=== PATIENT | female | born 1985 | race Caucasian/White ===

== ENCOUNTER 2016-04-14 16:02 | Emergency (ER) | payer MEDICAID ==
[~2016-04-14] VITALS: Ht 172.7 cm; Wt 60.0 kg
[~2016-04-14 16:02] MED LIST: BACT800T5 PO; CLIN1CAP6 PO
[2016-04-14 16:04] VITALS: BP 122/63; PULSE 80; RESP 12; TEMP 98.4; O2SAT 100
[2016-04-15] MEDS ORDERED: DOXY100C PO (03:56)
== END 2016-04-14 18:15 | disposition left against medical advice (07) ==
LOC: NETRI 18:05
DX: R68.89 Other general symptoms and signs (principal)
CPT/HCPCS: 99281

== ENCOUNTER 2016-04-15 01:00 | Emergency (ER) | payer MEDICAID ==
[~2016-04-15] VITALS: Ht 172.7 cm; Wt 60.0 kg
[2016-04-15 01:04] VITALS: BP 118/73; PULSE 86; RESP 16; TEMP 98.3; O2SAT 99
[2016-04-15 01:10] VITALS: BP 121/70; PULSE 83; RESP 18; O2SAT 99
[2016-04-15] MEDS ORDERED: SODIUM CHLOR 0.9% 1000 ML INJ 1,000 ML IV ONE (01:21)
[2016-04-15 01:54] LABS: BLOOD, URINE NEG (NEG); COMMENT (UR) CULT NOT INDICATED; CULTURE IF INDICATED CULT NOT INDICATED; GLUCOSE,URINE NEG (NEG); KETONE, URINE NEG (NEG); MUCUS URINE FEW /lpf (OCC); NITRITE,URINE NEG (NEG); SQUAMOUS EPITHELIAL CELL URINE 3 /hpf (0-5); TRANSITIONAL EPI CELLS, URINE <1 /hpf; URINE COLOR YELLOW (YELLW/STRAW)
--- NOTE | 2016-04-15 02:34 | PD ---
HPI Chief Complaint: Abdominal Pain Time Seen by Provider: 01:19 Travel History International Travel<30 days: No Contact w/Intl Traveler<30days: No Traveled to known affect area: No History of Present Illness HPI The patient is a 30 year old female who presents to the [facility] emergency department with a history of lower abdominal pain the left lower quadrant of the abdomen that she reports is an aching sensation that began 2-1/ 2 weeks ago. She reports that the pain became more of a pressure sensation and a heaviness in her vagina approximately 3 days ago. She reports that she didn' t internal examination and fell something abnormal in her vagina, therefore she decided to come to the emergency department this evening. She reports that she has not had a menstrual cycle for the last 8 months. She denies being sexually active. She reports that she is a with 1 previously. She reports that she has had some nausea. She denies having any vaginal discharge. The patient denies any recent fevers, cough, congestion, neck pain, chest pain , shortness of breath, vomiting, diarrhea, urinary symptoms, or neurologic symptoms. [facility] Past Medical History Narrative Medical The patient's past medical history is reportedly significant for chronic low back pain. Medical History: Denies Significant Hx Tetanus Vaccination: < 5 Years Influenza Vaccination: No ?: Not LMP: 8 MONTHS AGO : 2 Para: 1 Miscarriage: 0 : 1 Past Surgical History Narrative Surgical The patient denies any past surgical history. Surgical History: No Previous Surgery Social History Alcohol Use: No Tobacco Use: Yes (/2 PPD) Substance Use: Yes (OPIATES) Allergies-Medications (Allergen,Severity, Reaction): Coded Allergies: Tramadol (Verified Allergy, Severe, TONGUE SWELLED UP, 04/15/16) Reported Meds & Prescriptions Reported Meds & Active Scripts Active Doxycycline Hyclate 100 Mg Cap 100 Mg PO BID Review of Systems Except as stated in HPI: all other systems reviewed are Neg General / Constitutional: No: Fever Eyes: No: Visual changes HENT: No: Headaches Cardiovascular: No: Chest Pain or Discomfort Respiratory: No: Shortness of Breath Gastrointestinal: Positive: Nausea, Abdominal Pain, No: Vomiting, Diarrhea Genitourinary: Positive: Pelvic Pain, No: Dysuria, Discharge, Vaginal Bleeding Musculoskeletal: No: Pain Skin: No Rash Neurologic: No: Weakness Psychiatric: No: Depression Endocrine: No: Polydipsia Hematologic/Lymphatic: No: Easy Bruising Physical Exam Narrative General: The patient is a well-developed well-nourished female in no acute distress. Head and Neck exam: Head is normocephalic atraumatic. Eyes: Pupils are equal round and reactive to light. Nose: Midline septum with pink mucous membranes Mouth: Dentition unremarkable. Moist mucus membranes. Posterior oropharynx is not erythematous. No tonsillar hypertrophy. Uvula midline. Airway patent. Neck: No palpable lymphadenopathy. No nuchal rigidity. No thyromegaly. Cardiovascular: Regular rate and rhythm without murmurs, gallops, or rubs. Lungs: Clear to auscultation bilaterally. No wheezes, rhonchi, or rales. Abdomen: Soft, with tenderness on palpation of the suprapubic area, no other tenderness on palpation of the other 4 quadrants of the abdomen. No tenderness on palpation of McBurney's point. Negative Alejandra sign. Normal bowel sounds are audible. Extremities: No clubbing, cyanosis, or edema. 2+ pulses in all 4 extremities. No calf tenderness on palpation. Back: No spinous process tenderness to palpation. No costovertebral angle tenderness to palpation. Neurologic Exam: Grossly nonfocal. Skin Exam: No rash noted. Intact skin that is warm and dry. Gynecologic exam: The patient was placed in the dorsal lithotomy position. Her external genitalia were examined. She had no evidence of rash or lesions. The speculum was placed into her vagina and the cervix was identified. She had a yellow scant amount of discharge with friable appearing cervix. No foreign bodies. No rectocele or cystocele identified. No uterine prolapse. On Bimanual exam: she has no cervical motion tenderness. No adnexal tenderness or prominence noted on palpation. No uterine tenderness or enlargement noted on palpation. Data Data Last Documented VS Vital Signs Date Time Temp Pulse Resp B/P Pulse Ox O2 Delivery O2 Flow Rate FiO2 04/15/16 01:10 83 18 121/70 99 04/15/16 01:04 98.3 Orders Urinalysis - C+S If Indicated (04/15/16 01:21) Iv Access Insert/Monitor (04/15/16 01:21) Ecg Monitoring (04/15/16 01:21) Oximetry (04/15/16 01:21) Ed Urine Pregnancytest Poc (04/15/16 01:21) Gc And Chlamydia Pcr (04/15/16 01:21) Wet Prep Profile (04/15/16 01:21) Sodium Chlor 0.9% 1000 Ml Inj (Ns 1000 M (04/15/16 01:21) Us Pelvis Comp W Dop Transvag (04/15/16 01:51) Ceftriaxone Inj (Rocephin Inj) (04/15/16 04:00) Azithromycin Powd Pack (Zithromax Powd P (04/15/16 04:00) Ceftriaxone Inj (Rocephin Inj) (04/15/16 04:30) Lidocaine 1% Inj (50 Ml) (Xylocaine 1% I (04/15/16 04:30) Labs Laboratory Tests Test 04/15/16 04/15/16 01:30 02:25 Urine Color YELLOW Urine Turbidity CLEAR Urine pH 6.0 Urine Specific [place] 1.023 Urine Protein TRACE mg/dL Urine Glucose (UA) NEG mg/dL Urine Ketones NEG mg/dL Urine Occult Blood NEG Urine Nitrite NEG Urine Bilirubin NEG Urine Urobilinogen LESS THAN 2.0 MG/DL Urine Leukocyte Esterase TRACE Urine RBC 1 /hpf Urine WBC LESS THAN 1 /hpf Urine Squamous Epithelial 3 /hpf Cells Urine Transitional Epithelial <1 /hpf Cells Urine Mucus FEW /lpf Microscopic Urinalysis Comment CULT NOT INDICATED Clue Cells (Wet Prep) NONE SEEN Vaginal Trichomonas (Wet Prep) NONE SEEN Vaginal Yeast (Wet Prep) NONE SEEN Chlamydia trachomatis DNA NOT DETECTED (PCR) Neisseria gonorrhoeae DNA NOT DETECTED (PCR) MDM Medical Decision Making Medical Screen Exam Complete: Yes Emergency Medical Condition: Yes Medical Record Reviewed: Yes Interpretation(s) Last Impressions Abdomen/Pelvis/Transvag US 04/15/16 0151 Signed Impressions: Service Date/Time: Friday, April 15, 2016 03:00 - CONCLUSION: Unremarkable sonographic appearance of the pelvis. Elian Lagos MD Differential Diagnosis Ovarian cyst, versus , versus cervicitis Narrative Course During the course of the patients emergency department visit, the patients history, examination, and differential diagnosis were reviewed with the patient. The patient had IV access written to be obtained along with some blood work, however the patient refused. The patient reports that she does not want to have an IV placed or blood drawn. I explained that it would be difficult to determine exactly why she has not had a menstrual cycle over the last 8 months without further evaluation, and the patient continues to refuse. She is agreeable to imaging of the pelvis. An ultrasound has been ordered. She is also agreeable to urinalysis and urine testing. The patients laboratory studies were reviewed and remarkable for a urinalysis that is remarkable for trace leukocyte esterase, no other signs of infection, white blood cell less than 1, wet prep is negative. Given the patient's cervicitis noted on pelvic examination, the patient was given Rocephin 250 IM, Zithromax 1 g by mouth. Radiology studies were reviewed and remarkable for an ultrasound that shows an unremarkable evaluation of her ovaries and pelvis. No free fluid. The patient is resting comfortably and feels better, is alert and in no distress. The patients results and examination findings were discussed with her. The repeat examination is unremarkable and benign. The history, exam, diagnostic testing, and current condition do not suggest any significant pathology to warrant further testing, continued ED treatment, admission, or surgical evaluation at this point. The vital signs have been stable. The patient does not have uncontrollable pain, intractable vomiting, or other significant symptoms. The patient's condition is stable and appropriate for discharge. The patient will pursue further outpatient evaluation with a primary care physician or other designated or consulting physician as indicated in the discharge instructions. The patient expressed understanding and was agreeable with this plan. Diagnosis Primary Impression: Pelvic pain Additional Impressions: Cervicitis Amenorrhea Referrals: Yulia Willingham MD 1 week Patient Instructions: General Instructions, Pelvic Pain in Women (ED) Med/Other Pt SpecificInfo: Prescription(s) given Scripts Doxycycline Hyclate 100 Mg Vpf461 Mg PO BID #28 CAP Ref 0 Prov:Stephanie Willson MD 04/15/16 Disposition: 01 DISCHARGE HOME Condition: Stable Stephanie Willson MD Apr 15, 2016 02:34
[2016-04-15] MEDS ORDERED: DOXY100C PO (03:56)
[2016-04-15] MEDS ORDERED: cefTRIAXone 250 MG VIAL IM ONE ×2 (04:00→04:30)
[2016-04-15] MEDS ORDERED: AZITHROMYCIN PWD FOR SUSP 1 GM PACKET PO ONE (04:00)
--- NOTE | 2016-04-15 04:09 | RADRPT ---
EXAM DATE/TIME: 04/15/2016 03:00 [facility] COMPARISON: No previous studies available for comparison. INDICATIONS : Pelvic pain. MEDICAL HISTORY : History of pregnancies. Substance use. SURGICAL HISTORY : None. ENCOUNTER: Initial ACUITY: 2 weeks PAIN SCORE: 6/10 LOCATION: Bilateral pelvis MEASUREMENTS: UTERUS: 6.8 x 5.0 x 3.7 cm ENDOMETRIAL STRIPE: 3 mm RIGHT OVARY: 3.0 x 2.3 x 2.8 cm LEFT OVARY: 3.6 x 1.7 x 1.9 cm FINDINGS: UTERUS: The myometrium has homogeneous echotexture without mass. RIGHT OVARY: Ovary contains no mass or significant cystic lesion. LEFT OVARY: Ovary contains no mass or significant cystic lesion. MISCELLANEOUS: No free fluid. CONCLUSION: Unremarkable sonographic appearance of the pelvis. Elian Lagos MD on April 15, 2016 at 4:07 Board Certified Radiologist. This report was verified electronically.
[2016-04-15 04:14] LABS: CHLAMYDIA PCR NOT DETECTED (NOT DETECT); NEISSERIA PCR NOT DETECTED (NOT DETECT)
[2016-04-15] MEDS ORDERED: LIDOCAINE HCL 1% 50 ML VIAL IM ONE (04:30)
== END 2016-04-15 04:31 | disposition home or self-care (01) ==
LOC: NEPE 01:00
DX: R10.2 Pelvic and perineal pain (principal); N72 Inflammatory disease of cervix uteri; N91.2 Amenorrhea, unspecified; M54.5 Low back pain; G89.29 Other chronic pain; F17.210 Nicotine dependence, cigarettes, uncomplicated
CPT/HCPCS: 76830; 76856; 81001; 84703; 87210; 87491; 87591; 93975

== ENCOUNTER 2016-06-24 12:28 | Inpatient (IN) | payer MEDICAID ==
[~2016-06-24] VITALS: Ht 172.7 cm; Wt 59.0 kg
[~2016-06-24 12:28] MED LIST changes: -BACT800T5 PO; -CLIN1CAP6 PO; +DOXY100C PO
[2016-06-24 12:29] VITALS: BP 115/55; PULSE 88; RESP 20; TEMP 98.9; O2SAT 99
[2016-06-24 13:35] VITALS: BP 117/70; PULSE 80; RESP 20; O2SAT 100
--- NOTE | 2016-06-24 13:55 | PD ---
HPI . Chest pain Chief Complaint: Chest Pain Time Seen by Provider: 13:43 Travel History International Travel<30 days: No Contact w/Intl Traveler<30days: No Traveled to known affect area: No History of Present Illness HPI Patient presents complaining with right-sided chest pain. Her symptoms started last night. She describes sharp chest pain. She states that she's been sick with flulike symptoms for about 5 days. Those symptoms consist of nausea, vomiting, fatigue, cough. She reports some mild shortness of breath. Her chest pain is exacerbated by coughing, movement and deep respirations. She has not noted any relieving factors. She has not tried any [id number] medications. 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) Allergies-Medications (Allergen,Severity, Reaction): Coded Allergies: Tramadol (Verified Allergy, Severe, TONGUE SWELLED UP, 06/24/16) Reported Meds & Prescriptions Reported Meds & Active Scripts Active No Active Prescriptions or Reported Medications Review of Systems Except as stated in HPI: all other systems reviewed are Neg General / Constitutional: No: Fever, Chills HENT: No: Rhinorrhea, Congestion Cardiovascular: Positive: Chest Pain or Discomfort Respiratory: Positive: Cough, Shortness of Breath Gastrointestinal: Positive: Nausea, Vomiting, No: Abdominal Pain Genitourinary: No: Urgency, Frequency, Dysuria Physical Exam Narrative GENERAL: Healthy-appearing 30-year-old female in no acute distress. SKIN: Warm and dry. HEAD: Atraumatic. Normocephalic. EYES: Pupils equal and round. ENT: No nasal bleeding or discharge. Mucous membranes pink and moist. NECK: Trachea midline. Neck is supple. CARDIOVASCULAR: Regular rate and rhythm. Heart sounds are normal. RESPIRATORY: No accessory muscle use. Lungs are clear with full air movement throughout. No chest wall tenderness. GASTROINTESTINAL: Abdomen soft, non-tender, nondistended. MUSCULOSKELETAL: No obvious deformities. No edema. NEUROLOGICAL: Awake and alert. No obvious cranial nerve deficits. Motor grossly within normal limits. Normal speech. PSYCHIATRIC: Appropriate mood and affect; insight and judgment normal. Data Data Last Documented VS Vital Signs Date Time Temp Pulse Resp B/P Pulse Ox O2 Delivery O2 Flow Rate FiO2 06/24/16 16:05 67 20 115/65 95 Nasal Cannula 2 06/24/16 12:29 98.9 Orders Electrocardiogram (06/24/16 13:50) Chest, Single Ap (06/24/16 13:50) Aspirin Chew (Aspirin Chew) (06/24/16 14:00) Morphine Inj (Morphine Inj) (06/24/16 14:00) Sodium Chloride 0.9% Flush (Ns Flush) (06/24/16 14:00) Ondansetron Inj (Zofran Inj) (06/24/16 14:00) Ct Thorax/ Chest Wo Iv Contras (06/24/16 14:48) Chlorphenir-Hydrocodone Liq (Tussionex L (06/24/16 16:15) Azithromycin (Zithromax) (06/24/16 16:15) Ckmb (Isoenzyme) Profile (06/24/16 16:52) Complete Blood Count With Diff (06/24/16 16:52) Comprehensive Metabolic Panel (06/24/16 16:52) Magnesium (Mg) (06/24/16 16:52) Prothrombin Time / Inr (Pt) (06/24/16 16:52) Act Partial Throm Time (Ptt) (06/24/16 16:52) Troponin I (06/24/16 16:52) Ecg Monitoring (06/24/16 16:52) Bilateral Bp Monitoring (06/24/16 16:52) Iv Access Insert/Monitor (06/24/16 16:52) Oximetry (06/24/16 16:52) Oxygen Administration (06/24/16 16:52) Morphine Inj (Morphine Inj) (06/24/16 17:00) Sodium Chloride 0.9% Flush (Ns Flush) (06/24/16 17:00) Ct Pulmonary Angiogram (06/24/16 16:52) MDM Medical Decision Making Medical Screen Exam Complete: Yes Emergency Medical Condition: Yes Interpretation(s) EKG shows a sinus rhythm with a ventricular rate of 62. No ST segment elevation or depression. Differential Diagnosis Differential diagnosis of chest pain includes but is not limited to musculoskeletal pain, pulmonary embolism, acute coronary syndrome, pneumonia, pleurisy Narrative Course Patient presents with right-sided chest pain which is associated with a recent illness which has included a cough. Her chest pain is musculoskeletal related to the cough. She will be evaluated for possible pneumonia, pneumothorax or pulmonary embolism. The patient has refused a needlestick. The only thing that she has consented to , other than the EKG, is a chest x-ray. Following the chest x-ray, she will need to be signed out AMA. I have reviewed the chest x-ray results with the patient. She will consent to a noncontrasted CT of her chest. No refusing any IV stick. Last Impressions Chest X-Ray 06/24/16 1350 Signed Impressions: Service Date/Time: Friday, June 24, 2016 13:59 - CONCLUSION: 1. Possible air space process/consolidation medially in the right upper lobe and questionable nodular density just above the right hemidiaphragm. Noncontrasted CT scan of the chest could be performed for confirmation if clinically warranted. 2. Heart size is normal. Left lung is clear. Bala Palomares MD CT without contrast: CONCLUSION: Patchy somewhat nodular air space disease in both lungs. This could be a manifestation of septic pulmonary emboli in the appropriate clinical circumstance. These are most likely inflammatory and multifocal. I have discussed the findings of the CT with the patient. She is finally agreeable to allow IV sticks other further workup can be done. Her care is being signed out to the oncoming physician. Diagnosis Primary Impression: Chest pain Qualified Code: R07.1 - Chest pain on breathing Scripts No Active Prescriptions or Reported Meds Gayathri Malave MD Jun 24, 2016 13:55
[2016-06-24] MEDS ORDERED: ASPIRIN 81 MG CHEW TAB PO ONE (14:00)
[2016-06-24] MEDS ORDERED: ONDANSETRON HCL 4 MG/2 ML VIAL IV PUSH ONE (14:00)
[2016-06-24] MEDS ORDERED: MORPHINE SULFATE 4 MG/ML INJ IV PUSH ONE ×2 (14:00→17:00)
[2016-06-24] MEDS ORDERED: SODIUM CHLORIDE 0.9% FLUSH 10 ML FLUSH IVF PRN ×2 (14:00→17:00)
--- NOTE | 2016-06-24 14:37 | RADRPT ---
EXAM DATE/TIME: 06/24/2016 13:59 [facility] COMPARISON: No previous studies available for comparison. INDICATIONS : Patient has had chest pain on right side since last night. MEDICAL HISTORY : None. SURGICAL HISTORY : None. ENCOUNTER: Initial ACUITY: 1 day PAIN SCORE: 10/10 LOCATION: Right chest FINDINGS: A single view of the chest demonstrates questionable focal area of increased density medially in the right upper lobe and possible nodular density in the right base just above the hemidiaphragm. Left oli ng is clear. Heart size is normal. There is a dextroscoliosis of the lumbar spine. Osseous structures are otherwise intact. CONCLUSION: 1. Possible air space process/consolidation medially in the right upper lobe and questionable nodular density just above the right hemidiaphragm. Noncontrasted CT scan of the chest could be performed fo r confirmation if clinically warranted. 2. Heart size is normal. Left lung is clear. Bala Palomares MD on June 24, 2016 at 14:31 Board Certified Radiologist. This report was verified electronically.
[2016-06-24 16:05] VITALS: BP 115/65; PULSE 67; RESP 20; O2SAT 95
[2016-06-24] MEDS ORDERED: AZITHROMYCIN 250 MG TAB PO ONE (16:15)
[2016-06-24] MEDS ORDERED: CHLORPHENIR/HYDROCOD LIQUID 8 MG/10 MG/5 ML CUP PO ONE (16:15)
--- NOTE | 2016-06-24 16:22 | RADRPT ---
EXAM DATE/TIME: 06/24/2016 15:40 [facility] COMPARISON: No previous studies available for comparison. INDICATIONS : Flu like symptoms for the last week last night patient started having right-sided chest pains. RADIATION DOSE: 5.86 CTDIvol (mGy) MEDICAL HISTORY : None SURGICAL HISTORY : None. ENCOUNTER: Initial ACUITY: 1 day PAIN SCALE: 10/10 LOCATION: Right chest TECHNIQUE: Volumetric scanning of the chest was performed. Using automated exposure control and adjustment of t he mA and/or kV according to patient size, radiation dose was kept as low as reasonably achievable to obtain optimal diagnostic quality images. FINDINGS: Azygous lobe is seen on the right. Minimal patchy air space disease is seen scattered in both lungs some of which have a nodular appearance. Rib fracture is not appreciated. CONCLUSION: Patchy somewhat nodular air space disease in both lungs. This could be a manifestation of septic pul monary emboli in the appropriate clinical circumstance. These are most likely inflammatory and multi focal. Dani Cano MD FACR on June 24, 2016 at 16:17 Board Certified Radiologist. This report was verified electronically.
--- NOTE | 2016-06-24 17:20 | PD ---
Data Data Last Documented VS Vital Signs Date Time Temp Pulse Resp B/P Pulse Ox O2 Delivery O2 Flow Rate FiO2 06/24/16 19:15 101/55 06/24/16 16:05 67 20 95 Nasal Cannula 2 06/24/16 12:29 98.9 Orders Electrocardiogram (06/24/16 13:50) Chest, Single Ap (06/24/16 13:50) Aspirin Chew (Aspirin Chew) (06/24/16 14:00) Morphine Inj (Morphine Inj) (06/24/16 14:00) Sodium Chloride 0.9% Flush (Ns Flush) (06/24/16 14:00) Ondansetron Inj (Zofran Inj) (06/24/16 14:00) Ct Thorax/ Chest Wo Iv Contras (06/24/16 14:48) Chlorphenir-Hydrocodone Liq (Tussionex L (06/24/16 16:15) Azithromycin (Zithromax) (06/24/16 16:15) Ckmb (Isoenzyme) Profile (06/24/16 16:52) Complete Blood Count With Diff (06/24/16 16:52) Comprehensive Metabolic Panel (06/24/16 16:52) Magnesium (Mg) (06/24/16 16:52) Prothrombin Time / Inr (Pt) (06/24/16 16:52) Act Partial Throm Time (Ptt) (06/24/16 16:52) Troponin I (06/24/16 16:52) Ecg Monitoring (06/24/16 16:52) Bilateral Bp Monitoring (06/24/16 16:52) Iv Access Insert/Monitor (06/24/16 16:52) Oximetry (06/24/16 16:52) Oxygen Administration (06/24/16 16:52) Morphine Inj (Morphine Inj) (06/24/16 17:00) Sodium Chloride 0.9% Flush (Ns Flush) (06/24/16 17:00) Ct Pulmonary Angiogram (06/24/16 16:52) Vascular Access Team Consult PRN (06/24/16 16:57) Blood Culture (06/24/16 17:00) Ed Poc Ultrasound (06/24/16 ) Vascular Poc Ultrasound (06/24/16 ) Vancomycin Inj (Vancomycin Inj) (06/24/16 19:00) Lactic Acid (06/24/16 19:00) Sodium Chlor 0.9% 1000 Ml Inj (Ns 1000 M (06/24/16 19:00) Iohexol 350 Inj (Omnipaque 350 Inj) (06/24/16 19:12) Admit Order (Ed Use Only) (06/24/16 19:18) Labs Laboratory Tests Test 06/24/16 17:20 White Blood Count 6.7 TH/MM3 Red Blood Count 4.26 MIL/MM3 Hemoglobin 10.4 GM/DL Hematocrit 31.8 % Mean Corpuscular Volume 74.6 FL Mean Corpuscular Hemoglobin 24.5 PG Mean Corpuscular Hemoglobin 32.8 % Concent Red Cell Distribution Width 14.7 % Platelet Count 144 TH/MM3 Mean Platelet Volume 7.5 FL Neutrophils (%) (Auto) 59.4 % Lymphocytes (%) (Auto) 31.0 % Monocytes (%) (Auto) 9.1 % Eosinophils (%) (Auto) 0.2 % Basophils (%) (Auto) 0.3 % Neutrophils # (Auto) 4.0 TH/MM3 Lymphocytes # (Auto) 2.1 TH/MM3 Monocytes # (Auto) 0.6 TH/MM3 Eosinophils # (Auto) 0.0 TH/MM3 Basophils # (Auto) 0.0 TH/MM3 CBC Comment AUTO DIFF Differential Total Cells 100 Counted Neutrophils % (Manual) 47 % Band Neutrophils % 21 % Lymphocytes % 26 % Monocytes % 6 % Neutrophils # (Manual) 4.6 TH/MM3 Differential Comment FINAL DIFF MANUAL Platelet Estimate LOW Platelet Morphology Comment NORMAL Prothrombin Time 11.3 SEC Prothromb Time International 1.0 RATIO Ratio Activated Partial 39.9 SEC Thromboplast Time Sodium Level 134 MEQ/L Potassium Level 3.3 MEQ/L Chloride Level 96 MEQ/L Carbon Dioxide Level 28.4 MEQ/L Anion Gap 10 MEQ/L Blood Urea Nitrogen 5 MG/DL Creatinine 0.73 MG/DL Estimat Glomerular Filtration 94 ML/MIN Rate Random Glucose 95 MG/DL Calcium Level 8.5 MG/DL Magnesium Level 2.0 MG/DL Total Bilirubin 0.4 MG/DL Aspartate Amino Transf 33 U/L (AST/SGOT) Alanine Aminotransferase 31 U/L (ALT/SGPT) Alkaline Phosphatase 114 U/L Total Creatine Kinase 56 U/L Troponin I LESS THAN 0.02 NG/ML Total Protein 8.4 GM/DL Albumin 3.1 GM/DL [facility] Supervised Visit with RYANN: No Interpretation(s) No leukocytosis 21% bands Mild hypokalemia Troponin is normal Last [address] 06/24/16 1448 Signed Impressions: Service Date/Time: Friday, June 24, 2016 15:40 - CONCLUSION: Patchy somewhat nodular air space disease in both lungs. This could be a manifestation of septic pulmonary emboli in the appropriate clinical circumstance. These are most likely inflammatory and multifocal. Dani Cano MD FACR Chest X-Ray 06/24/16 1350 Signed Impressions: Service Date/Time: Friday, June 24, 2016 13:59 - CONCLUSION: 1. Possible air space process/consolidation medially in the right upper lobe and questionable nodular density just above the right hemidiaphragm. Noncontrasted CT scan of the chest could be performed for confirmation if clinically warranted. 2. Heart size is normal. Left lung is clear. Bala Palomares MD Differential Diagnosis Pneumonia, viral syndrome, pericarditis, pulmonary embolism, endocarditis Narrative Course This is a 30-year-old female who presents to the emergency department with a history of IV drug use. She is reporting chest pain and shortness of breath. She was seen initially by who had some difficulty convincing the patient to agree to IV access. A CT without contrast was concerning for septic pulmonary emboli. I placed an IV and the patient under ultrasound guidance. Labs were obtained which demonstrated a bandemia. I gave the patient a dose of vancomycin in the setting of likely endocarditis. Patient will be admitted to the residents. Procedures Procedure Narrative Ultrasound IV: A 20-gauge IV was placed under ultrasound guidance in the right antecubital fossa. Patient tolerated the procedure well. Area was cleansed with Chloraprep prior to insertion. Diagnosis Primary Impression: Endocarditis Qualified Code: I33.0 - Acute infective endocarditis, due to unspecified organism Admitting Information Admitting Physician Requests: Admit Scripts No Active Prescriptions or Reported Meds Alize Cochran MD Jun 24, 2016 17:20
[2016-06-24 17:44] LABS: BASOPHIL % 0.3 % (0.0-2.0); EOSINOPHIL % 0.2 % (0.0-4.0); HEMATOCRIT 31.8 % (35.0-46.0); LYMPHOCYTE # 2.1 TH/MM3 (1.0-4.8); MEAN CELL VOLUME 74.6 FL (80.0-100.0); MEAN CORPUSCULAR HEMOGLOBIN 24.5 PG (27.0-34.0); MEAN CORPUSCULAR HGB CONC 32.8 % (32.0-36.0); MONO % 9.1 % (0.0-8.0); NEUT % 59.4 % (16.0-70.0); PLATELET COUNT 144 TH/MM3 (150-450); RED BLOOD COUNT 4.26 MIL/MM3 (4.00-5.30); RED CELL DISTRIBUTION WIDTH 14.7 % (11.6-17.2); WHITE BLOOD COUNT 6.7 TH/MM3 (4.0-11.0)
[2016-06-24 17:53] LABS: HEMO FLAGS AUTO DIFF
[2016-06-24 17:56] LABS: APTT (PATIENT) 39.9 SEC (24.3-30.1); PROTHROMBIN TIME - PATIENT 11.3 SEC (9.8-11.6)
[2016-06-24 18:06] LABS: ANION GAP 10 MEQ/L (5-15); AST (GOT) 33 U/L (15-37); BICARBONATE 28.4 MEQ/L (21.0-32.0); BLOOD UREA NITROGEN 5 MG/DL (7-18); CHLORIDE 96 MEQ/L (98-107); GLOMERULAR FILTRATION RATE 94 ML/MIN (>89); POTASSIUM 3.3 MEQ/L (3.5-5.1); SODIUM (NA) 134 MEQ/L (136-145)
[2016-06-24 18:11] LABS: ALKALINE PHOSPHATASE 114 U/L (45-117); ALT (GPT) 31 U/L (10-53); TOTAL BILIRUBIN ADULT 0.4 MG/DL (0.2-1.0)
[2016-06-24 18:22] LABS: CREATINE KINASE 56 U/L (26-192)
[2016-06-24 18:46] LABS: BANDS 21 % (0-6); NEUTROPHIL # MANUAL DIFF 4.6 TH/MM3 (1.8-7.7); POLYS (SEG NEUTROPHILS) 47 % (16-70); WBC DIFF SAMPLE 100
[2016-06-24 18:48] LABS: PLATELET ESTIMATE SMEAR LOW (NORMAL)
[2016-06-24 18:49] LABS: PLATELET MORPHOLOGY NORMAL (NORMAL); SCAN/DIFF FINAL DIFF MANUAL
[2016-06-24] MEDS ORDERED: VANCOMYCIN INJ 900 MG in SODIUM CHLOR 0.9% 250 ML INJ 250 ML IV ONE (19:00)
[2016-06-24] MEDS ORDERED: SODIUM CHLOR 0.9% 1000 ML INJ 1,000 ML IV ONE (19:00)
[2016-06-24] MEDS ORDERED: IOHEXOL 350 MG/ML 10 ML VIAL (for RAD DIAG) IV ONE (19:12)
[2016-06-24 19:15] VITALS: BP 101/55
--- NOTE | 2016-06-24 19:32 | HHI.HP ---
HPI Service Family Medicine Primary Care Physician No Primary Care Physician Admission Diagnosis endocarditis Diagnoses: International Travel<30 Days: No Contact w/Intl Traveler<30days: No Known Affected Area: No History of Present Illness 30 y/o Female with PMHx of IVDU, presenting with right sided chest pain. HPI: She reports that 5 days ago she had nausea and fatigue, productive of green mucus. Denies hemoptysis. +Nasal congestive over the same time periods well as "flu symptoms" which include general malaise, cough, rhinorrhea. Last night, she was laying down, sleeping and was awoken by chest pain. She thought it was a cramp, so she started stretching. This did not help and the pain continued to get worse. Pain worse with deep inspiration and cough. Described as a stabbing pain. The pain on admission was a 10, currently a 6 out of 10. An hour after pain medication her CP improved (morphine 4 mg IV). Pain radiates into her back. No pain in her jaw or into one arm. No diaphoresis. No nausea or vomiting. +SOB 2/2 inability to take a deep breath. Denies reflux symptoms. (Bello Howell MD R2) Review of Systems Constitutional: DENIES: Fever, Chills Endocrine: DENIES: Polyuria Eyes: DENIES: Blurred vision, Diplopia, Vision loss Ears, nose, mouth, throat: DENIES: Vertigo, Nasal discharge, Oral lesions, Throat pain, Running Nose, Epistaxis Respiratory: COMPLAINS OF: Cough, Sputum production, Shortness of breath Cardiovascular: COMPLAINS OF: Chest pain, DENIES: Palpitations, Syncope, Dyspnea on Exertion Gastrointestinal: DENIES: Abdominal pain, Bloody stools, Constipation, Diarrhea , Nausea, Vomiting Genitourinary: COMPLAINS OF: Urgency, DENIES: Dysuria Integumentary: DENIES: Rash Neurologic: DENIES: Headache Psychiatric: DENIES: Confusion (Bello Howell MD R2) Past Family Social History Past Medical History Denies endocarditis Pneumonia at 17 y/o Past Surgical History denies (Bello Howell MD R2) Allergies: Coded Allergies: Tramadol (Verified Allergy, Severe, TONGUE SWELLED UP, 06/24/16) Family History Mom - no medical problem, endometrial cancer Father - healthy Siblings - denies Social History [place] - moved here when 14 y/o Work - [employer] - 1 ppd, sine 17 y/o EtOH - no etoh use No new sexual partners Marijuana negative Opiate IVDU one week ago - Suboxone prescribed by Alfreda, not really working, relapsed 1 week ago, injected Dilaudid. Methadone clinic 30 mg daily. (Bello Howell MD R2) Physical Exam Vital Signs Vital Signs Date Time Temp Pulse Resp B/P Pulse Ox O2 Delivery O2 Flow Rate FiO2 06/24/16 19:15 101/55 06/24/16 16:05 67 20 115/65 95 Nasal Cannula 2 06/24/16 13:35 80 20 117/70 100 Room Air 06/24/16 12:29 98.9 88 20 115/55 99 Room Air Physical Exam GENERAL: NAD SKIN: Multiple tattoos - track smyth on forearms. No splinter hemorrhages noted. HEAD: Atraumatic. Normocephalic. EYES: Pupils equal round and reactive. Extraocular motions intact. No scleral icterus. No injection or drainage. Funduscopic exam deferred ENT: Nose without bleeding, purulent drainage or septal hematoma. Throat without erythema, tonsillar hypertrophy or exudate. Uvula midline. Airway patent. NECK: Trachea midline. No JVD or lymphadenopathy. Supple, nontender, no meningeal signs. CARDIOVASCULAR: Regular rate and rhythm. 2/6 ejection at left 4th intercostal space. RESPIRATORY: Coarse crackles on left lung field GASTROINTESTINAL: Abdomen soft, non-tender, nondistended. MUSCULOSKELETAL: Extremities without clubbing, cyanosis, or edema. No joint tenderness, effusion, or edema noted. No calf tenderness. Negative Homans sign bilaterally. NEUROLOGICAL: Awake and alert. Cranial nerves II through XII intact. Motor and sensory grossly within normal limits. Five out of 5 muscle strength in all muscle groups. Normal speech. Laboratory Laboratory Tests Test 06/24/16 17:20 White Blood Count 6.7 Red Blood Count 4.26 Hemoglobin 10.4 Hematocrit 31.8 Mean Corpuscular Volume 74.6 Mean Corpuscular Hemoglobin 24.5 Mean Corpuscular Hemoglobin 32.8 Concent Red Cell Distribution Width 14.7 Platelet Count 144 Mean Platelet Volume 7.5 Neutrophils (%) (Auto) 59.4 Lymphocytes (%) (Auto) 31.0 Monocytes (%) (Auto) 9.1 Eosinophils (%) (Auto) 0.2 Basophils (%) (Auto) 0.3 Neutrophils # (Auto) 4.0 Lymphocytes # (Auto) 2.1 Monocytes # (Auto) 0.6 Eosinophils # (Auto) 0.0 Basophils # (Auto) 0.0 CBC Comment AUTO DIFF Differential Total Cells 100 Counted Neutrophils % (Manual) 47 Band Neutrophils % 21 Lymphocytes % 26 Monocytes % 6 Neutrophils # (Manual) 4.6 Differential Comment FINAL DIFF MANUAL Platelet Estimate LOW Platelet Morphology Comment NORMAL Prothrombin Time 11.3 Prothromb Time International 1.0 Ratio Activated Partial 39.9 Thromboplast Time Sodium Level 134 Potassium Level 3.3 Chloride Level 96 Carbon Dioxide Level 28.4 Anion Gap 10 Blood Urea Nitrogen 5 Creatinine 0.73 Estimat Glomerular Filtration 94 Rate Random Glucose 95 Calcium Level 8.5 Magnesium Level 2.0 Total Bilirubin 0.4 Aspartate Amino Transf 33 (AST/SGOT) Alanine Aminotransferase 31 (ALT/SGPT) Alkaline Phosphatase 114 Total Creatine Kinase 56 Troponin I LESS THAN 0.02 Total Protein 8.4 Albumin 3.1 Date/Time Procedure Status Source Growth 06/24/16 17:25 Aerobic Blood Culture Received Blood Peripheral Pending 06/24/16 17:25 Anaerobic Blood Culture Received Blood Peripheral Pending (Bello Howell MD R2) Result Diagram: 06/24/16 1720 06/24/[address] Angiography 06/24/16 1652 Signed Impressions: Service Date/Time: Friday, June 24, 2016 18:42 - CONCLUSION: 1. Scattered nodular densities throughout both lungs as described above. Differential includes nodular infiltrates or true pulmonary nodules. 2. No evidence of pulmonary emboli. 3. Hepatosplenomegaly. Nikita Garcia MD Chest CT 06/24/16 1448 Signed Impressions: Service Date/Time: Friday, June 24, 2016 15:40 - CONCLUSION: Patchy somewhat nodular air space disease in both lungs. This could be a manifestation of septic pulmonary emboli in the appropriate clinical circumstance. These are most likely inflammatory and multifocal. Dani Cano MD FACR Chest X-Ray 06/24/16 1350 Signed Impressions: Service Date/Time: Friday, June 24, 2016 13:59 - CONCLUSION: 1. Possible air space process/consolidation medially in the right upper lobe and questionable nodular density just above the right hemidiaphragm. Noncontrasted CT scan of the chest could be performed for confirmation if clinically warranted. 2. Heart size is normal. Left lung is clear. Bala Palomares MD (Bello Howell MD R2) Septic Shock Reassessment Heart: Regular rate and rhythm Lungs: Course, Crackles Skin: Warm Peripheral Pulses: Bounding Right Radial Bounding Left Radial Capillary Refill: <2 seconds (Bello Howell MD R2) Assessment and Plan Assessment and Plan Mrs. Cummins is a 30 y/o f with PMH of IVDU, presenting to the [place] emergency department after 5 days of general malaise and flulike symptoms, followed by acute onset shortness of breath and right-sided chest pain. She was found to have patchy, nodular airspace disease in both lungs that could possibly be a manifestation of septic pulmonary emboli. She will be admitted for presumptive endocarditis with seeding to the lungs. Code Status Full Code. (Bello Howell MD R2) Attending Attestation THIS CASE WAS DISCUSSED WITH THE RESIDENT PHYSICIANS. I HAVE REVIEWED THE RECORD AND AGREE WITH THE ABOVE NOTE AND PLAN OF CARE WAS DISCUSSED. I HAVE AUTHORIZED THE ORDER FOR ADMISSION TO AN IN-PATIENT STATUS. (Harjinder Hensley MD) Problem List: (1) Chest pain Status: Acute Plan: Likely 2/2 to endocarditis vs CAP vs. septic emboli Pain control with Percocet 10-325, 1 and 2 tablets for pain 1-5 and 6-10 respectively Morphine 2 mg q 3 hr breakthrough CTA was negative for PE however showed scattered nodular densities throughout both lungs Cover for community-acquired pneumonia with ceftriaxone, and azithromycin. Treat for possible endocarditis given new murmur on exam, as well as IV drug use : Vancomycin 1 g every 12 hours IV for staph, strep, and strep viridans. Blood cultures 4, prior to antibiotics. Status post 1 L of fluid, give NS at 100 ml/hr. Scheduled DuoNeb's every 6 hours Check urine Legionella as well as pneumococcal antigens, check for influenza A & B (2) Pulmonary infiltrates Status: Acute Plan: Likely client services representative of septic emboli ABX as above Get 2-D echocardiogram Consult infectious disease, we appreciate their recommendations. Continuous pulse ox, O2 1-4 L goal Ox > 95% Breathing tx as above F/u bld cx (3) Heart murmur Status: Acute Plan: We'll get 2-D echo, may represent a new vegetation. (4) Anemia Status: Acute Plan: Likely secondary to malnutrition. We'll monitor with CBC in the a.m. (5) Hypokalemia Status: Acute Plan: Check BMP in the morning, potassium was 3.3 on admission. If decreasing , will give supplemental potassium chloride tablets. (6) IV drug abuse Status: Acute Plan: CIWA protocol in place for agitation. Likely to withdrawal during hospitalization. We'll add clonidine 0.1 mg every 3 hours when necessary withdrawal/tachycardia ( hold parameters) Baclofen 5 mg for muscle cramps PRN q 6 hr Loperamide 10 mg q 6 hr prn diarrhea WDW Dr. Hensley (Bello Howell MD R2) Physician Certification 2 Midnight Certification Type: Admission for Inpatient Services Order for Inpatient Services The services are ordered in accordance with Medicare regulations or non- Medicare payer requirements, as applicable. In the case of services not specified as inpatient-only, they are appropriately provided as inpatient services in accordance with the 2-midnight benchmark. Estimated LOS (days): 3 3 days is the estimated time the patient will need to remain in the hospital, assuming treatment plan goals are met and no additional complications. Post-Hospital Plan: Home (Bello Howell MD R2) Problem Qualifiers (1) Chest pain: Qualified Code: R07.1 - Chest pain on breathing Bello Howell MD R2 Jun 24, 2016 19:32 Harjinder Hensley MD Jun 25, 2016 11:01
--- NOTE | 2016-06-24 19:42 | RADRPT ---
EXAM DATE/TIME: 06/24/2016 18:42 [facility] COMPARISON: CT THORAX W/O CONTRAST, June 24, 2016, 15:40. INDICATIONS : Flu like symptoms for one week, starting last night right chest pain. IV CONTRAST: 50 cc Omnipaque 350 (iohexol) IV RADIATION DOSE: 21.69 CTDIvol (mGy) MEDICAL HISTORY : None SURGICAL HISTORY : None. ENCOUNTER: Initial ACUITY: 1 week PAIN SCALE: 5/10 LOCATION: Right chest TECHNIQUE: Volumetric scanning of the chest was performed using a pulmonary embolism protocol MIP images were re constructed. Using automated exposure control and adjustment of the mA and/or kV according to patien t size, radiation dose was kept as low as reasonably achievable to obtain optimal diagnostic quality images. FINDINGS: There is no evidence of pulmonary embolism. Scattered nodular densities are again noted bilaterally with the largest located in the right apex measuring 2.2 cm. There are at least 10 more smaller nodu lar densities scattered throughout both lungs. Differential includes nodular infiltrates or true pul monary nodules. Focal patchiness is noted within the right posteromedial lung base and within the le ft posterior lung base also. No mediastinal or hilar lymphadenopathy is noted. No significant axill iza lymphadenopathy is noted. Azygous lobe and fissure are noted. Hepatosplenomegaly is noted. CONCLUSION: 1. Scattered nodular densities throughout both lungs as described above. Differential includes nodu lar infiltrates or true pulmonary nodules. 2. No evidence of pulmonary emboli. 3. Hepatosplenomegaly. Nikita Garcia MD on June 24, 2016 at 19:30 Board Certified Radiologist. This report was verified electronically.
[2016-06-24] MEDS ORDERED: oxyCODONE/ACETAMINOPHEN 10 MG/325 MG TAB PO PRN (20:30)
[2016-06-24] MEDS ORDERED: SODIUM CHLORIDE 0.9% FLUSH 10 ML FLUSH IV FLUSH PRN (20:30)
[2016-06-24] MEDS ORDERED: LORazepam 2 MG TAB PO PRN (20:30)
[2016-06-24] MEDS ORDERED: FLUMAZENIL 0.5 MG/5 ML VIAL IV PUSH PRN (20:30)
[2016-06-24] MEDS ORDERED: NALOXONE HCL 0.4 MG/ML AMP IV PRN (20:30)
[2016-06-24] MEDS ORDERED: MAGNESIUM HYDROXIDE SUSP 30 ML CUP PO PRN (20:30)
[2016-06-24] MEDS ORDERED: LORazepam 1 MG TAB PO PRN (20:30)
[2016-06-24] MEDS ORDERED: Vancomycin Consult Pharmacy 1 EA OTHER SCH (20:30)
[2016-06-24] MEDS ORDERED: ONDANSETRON HCL 4 MG/2 ML VIAL IVP PRN (20:30)
[2016-06-24] MEDS ORDERED: LORazepam 2 MG/ML VIAL IV PUSH PRN ×4 (20:30)
[2016-06-24] MEDS ORDERED: MORPHINE SULFATE 4 MG/ML INJ IV PUSH PRN (20:30)
[2016-06-24] MEDS ORDERED: TEMAZEPAM 15 MG CAP PO PRN (21:00)
[2016-06-24] MEDS: SODIUM CHLORIDE 0.9% FLUSH 10 ML FLUSH IV FLUSH SCH (21:00)
[2016-06-24] MEDS: RESP: ALBUTEROL 2.5 MG/IPRATROPIUM 0.5 MG NEB (SCH) INH (21:37)
[2016-06-24] MEDS: ENOXAPARIN SODIUM 40 MG/0.4 ML SYRINGE SQ SCH ×2 (21:37→21:39)
[2016-06-24] MEDS: SODIUM CHLOR 0.9% 1000 ML INJ 1,000 ML IV SCH (21:38)
[2016-06-24] MEDS: cefTRIAXone INJ 1,000 MG in SODIUM CHLORIDE 0.9% INJ 100 ML IV SCH (21:39)
[2016-06-24 22:14] VITALS: BP 95/53; PULSE 83; TEMP 100.4; O2SAT 92
[2016-06-24] MEDS ORDERED: DIPHENOXYLATE/ATROPINE 2.5 MG/0.025 MG TAB PO PRN (23:45)
[2016-06-24] MEDS ORDERED: BACLOFEN 10 MG TAB PO PRN (23:45)
[2016-06-24] MEDS ORDERED: cloNIDine HCL 0.1 MG TAB PO PRN ×2 (23:45)
[2016-06-25] VITALS (8 sets, daily range): BP systolic 93–139; BP diastolic 54–73; PULSE 55–74; RESP 16–20; TEMP 97.5–98.6; O2SAT 94–98
[2016-06-25] MEDS: oxyCODONE/ACETAMINOPHEN 10 MG/325 MG TAB PO PRN ×2 (02:02→23:05)
[2016-06-25 02:34] LABS: BLOOD, URINE NEG (NEG); COMMENT (UR) CULT NOT INDICATED; CULTURE IF INDICATED CULT NOT INDICATED; GLUCOSE,URINE NEG (NEG); KETONE, URINE NEG (NEG); NITRITE,URINE NEG (NEG); URINE COLOR YELLOW (YELLW/STRAW)
[2016-06-25 02:38] LABS: AMPHETAMINE, URINE NEG (NEG); BARBITURATES, URINE NEG (NEG); COCAINE, URINE NEG (NEG)
[2016-06-25] MEDS: RESP: ALBUTEROL 2.5 MG/IPRATROPIUM 0.5 MG NEB (SCH) INH ×4 (04:34→21:03)
[2016-06-25 05:17] LABS: BASOPHIL % 0.2 % (0.0-2.0); EOSINOPHIL % 0.3 % (0.0-4.0); HEMATOCRIT 29.1 % (35.0-46.0); LYMPH % 35.6 % (9.0-44.0); LYMPHOCYTE # 2.1 TH/MM3 (1.0-4.8); MEAN CELL VOLUME 73.9 FL (80.0-100.0); MEAN CORPUSCULAR HEMOGLOBIN 24.5 PG (27.0-34.0); MEAN CORPUSCULAR HGB CONC 33.1 % (32.0-36.0); NEUT % 52.9 % (16.0-70.0); PLATELET COUNT 129 TH/MM3 (150-450); RED BLOOD COUNT 3.93 MIL/MM3 (4.00-5.30); RED CELL DISTRIBUTION WIDTH 14.9 % (11.6-17.2); WHITE BLOOD COUNT 5.8 TH/MM3 (4.0-11.0)
[2016-06-25 05:41] LABS: ALKALINE PHOSPHATASE 95 U/L (45-117); ALT (GPT) 26 U/L (10-53); ANION GAP 8 MEQ/L (5-15); AST (GOT) 29 U/L (15-37); BICARBONATE 27.9 MEQ/L (21.0-32.0); BLOOD UREA NITROGEN 4 MG/DL (7-18); CHLORIDE 103 MEQ/L (98-107); GLOMERULAR FILTRATION RATE 114 ML/MIN (>89); POTASSIUM 3.5 MEQ/L (3.5-5.1); SODIUM (NA) 139 MEQ/L (136-145); TOTAL BILIRUBIN ADULT 0.4 MG/DL (0.2-1.0)
[2016-06-25 05:52] LABS: HEMO FLAGS AUTO DIFF
[2016-06-25] MEDS: SODIUM CHLOR 0.9% 1000 ML INJ 1,000 ML IV SCH ×2 (07:00→16:24)
[2016-06-25 07:27] LABS: PLATELET ESTIMATE SMEAR LOW (NORMAL); PLATELET MORPHOLOGY NORMAL (NORMAL); SCAN/DIFF AUTO DIFF CONFIRMED
[2016-06-25] MEDS: SODIUM CHLORIDE 0.9% FLUSH 10 ML FLUSH IV FLUSH SCH ×2 (09:00→23:03)
[2016-06-25] MEDS: VANCOMYCIN INJ 1,000 MG in SODIUM CHLOR 0.9% 250 ML INJ 250 ML IV SCH ×2 (09:44→23:03)
--- NOTE | 2016-06-25 11:01 | HHI.FPPN ---
Subjective Remarks No acute events overnight patient feels that she is able to breathe somewhat better this morning. She continues to have right sided chest pain on deep inspiration but feels that this has improved. She denies any fevers or chills. She denies any cough or sputum production. She denies any nausea or vomiting. She denies any headaches or vision changes. In summary this is a 30-year-old female with a history of IV drug use who presented to the emergency department with a sudden onset right sided pleuritic chest pain. She reports 5 days of generalized malaise with nausea and fatigue as well as a cough productive of green mucus. She describes these as "flulike symptoms". On the night prior to admission, she was awoken from her sleep by a pleuritic type chest pain located on the right side of her chest that radiates into her back. She states that it was a 10/10 at its worse and worse with deep inspiration. She endorses shortness of breath and inability to take deep breath with this. She denies any radiation of pain to her jaw or her arm. She denies any diaphoresis. She denies any fevers or chills. She does have a history of IV drug use with her last use being 1 week prior to presentation in which she injected Dilaudid into her left wrist. She does note swelling and erythema over the flexor aspect of the left wrist but feels that this is getting better. She denies any warmth or drainage from the area. She claims to only use her upper extremities for injection and always uses a clean needle. Past Medical History Denies endocarditis Pneumonia at 17 y/o Past Surgical History denies Allergies: Coded Allergies: Tramadol (Verified Allergy, Severe, TONGUE SWELLED UP, 06/24/16) Family History Mom - no medical problem, endometrial cancer Father - healthy Siblings - denies Social History Born in [place] - moved here when 14 y/o Work - [employer] - 1 ppd, since 17 y/o EtOH - no etoh use No new sexual partners Marijuana negative Opiate IVDU one week ago - Suboxone prescribed by Alfreda, not really working, relapsed 1 week ago, injected Dilaudid. Methadone clinic 30 mg daily. Objective Vitals Vital Signs Date Time Temp Pulse Resp B/P Pulse Ox O2 Delivery O2 Flow Rate FiO2 06/25/16 07:51 98.6 73 20 107/65 98 06/25/16 04:29 98.0 67 16 93/54 94 06/24/16 22:14 100.4 83 95/53 92 06/24/16 19:15 101/55 06/24/16 16:05 95 Nasal Cannula 2.00 06/24/16 16:05 67 20 115/65 95 Nasal Cannula 2 06/24/16 13:35 80 20 117/70 100 Room Air 06/24/16 12:29 98.9 88 20 115/55 99 Room Air Result Diagram: 06/25/16 0435 06/25/16 0435 Imaging Last [address] Angiography 06/24/16 1652 Signed Impressions: Service Date/Time: Friday, June 24, 2016 18:42 - CONCLUSION: 1. Scattered nodular densities throughout both lungs as described above. Differential includes nodular infiltrates or true pulmonary nodules. 2. No evidence of pulmonary emboli. 3. Hepatosplenomegaly. Nikita Garcia MD Chest CT 06/24/16 1448 Signed Impressions: Service Date/Time: Friday, June 24, 2016 15:40 - CONCLUSION: Patchy somewhat nodular air space disease in both lungs. This could be a manifestation of septic pulmonary emboli in the appropriate clinical circumstance. These are most likely inflammatory and multifocal. Dani Cano MD FACR Chest X-Ray 06/24/16 1350 Signed Impressions: Service Date/Time: Friday, June 24, 2016 13:59 - CONCLUSION: 1. Possible air space process/consolidation medially in the right upper lobe and questionable nodular density just above the right hemidiaphragm. Noncontrasted CT scan of the chest could be performed for confirmation if clinically warranted. 2. Heart size is normal. Left lung is clear. Bala Palomares MD Objective Remarks GENERAL: Healthy-appearing young woman, lying in bed in no obvious distress SKIN: Multiple tattoos - track smyth and bruises on forearms. No splinter hemorrhages noted. Left wrist on the flexor aspect with a 1 cm x 1 cm raised lesion, nonfluctuant with no obvious drainage. Area is mildly erythematous but is not warm to touch. HEAD: Atraumatic. Normocephalic. EYES: Pupils equal round and reactive. Extraocular motions intact. No scleral icterus. NECK: Trachea midline. No JVD or lymphadenopathy. Supple, nontender, no meningeal signs. CARDIOVASCULAR: Regular rate and rhythm. 2/6 ejection systolic. RESPIRATORY: Lung jordan were clear to auscultation with occasional expiratory wheezes GASTROINTESTINAL: Abdomen soft, non-tender, nondistended. MUSCULOSKELETAL: Extremities without clubbing, cyanosis, or edema. No splinter hemorrhages noted under nails. NEUROLOGICAL: Awake and alert. Cranial nerves II through XII intact. Motor and sensory grossly within normal limits. Five out of 5 muscle strength in all muscle groups. Normal speech. A/P Assessment and Plan Mrs. Cummins is a 30 y/o f with PMH of IVDU, presenting to the [place] emergency department after 5 days of general malaise and flulike symptoms, followed by acute onset shortness of breath and right-sided chest pain. She was found to have patchy, nodular airspace disease in both lungs that could possibly be a manifestation of septic pulmonary emboli. Problem List: (1) Pulmonary infiltrates Status: Acute Plan: Inflammatory nodules versus septic pulmonary emboli versus pneumonia Broad-spectrum antibiotics to cover for possible pneumonia as well as possible endocarditis - Vancomycin 1 g IV every 12 hours - Azithromycin 500 mg by mouth every 24 hours - Rocephin 1 g IV every 24 hours 2-D echocardiogram ordered and pending Consult infectious disease, we appreciate their recommendations. Continuous pulse ox, O2 1-4 L goal Ox > 95% Breathing tx as above Monitor on telemetry Blood cultures 2 drawn and pending (2) Chest pain Status: Acute Plan: Concern is for infectious endocarditis - Patient has 3 minor criteria - Recent IV drug use - Febrile up to 100.4 - Possible pulmonary emboli Blood cultures 2 drawn and pending Echocardiogram ordered and pending Initial cardiac troponin was within normal limits Possible source of infection of the left wrist, we will obtain an ultrasound to evaluate the soft tissue and see if there is any abscess to drain Antibiotic coverage as above for pulmonary infiltrates Pain control as below: Pain control with Percocet 10-325, 1 and 2 tablets for pain 1-5 and 6-10 respectively Morphine 2 mg q 3 hr breakthrough Scheduled DuoNeb's every 6 hours (3) Heart murmur Status: Acute Plan: We'll get 2-D echo to evaluate for vegetation (4) IV drug abuse Status: Acute Plan: CIWA protocol in place for agitation. Possibility of withdrawal during hospitalization. We'll add clonidine 0.1 mg every 3 hours when necessary withdrawal/tachycardia ( hold parameters) Baclofen 5 mg for muscle cramps PRN q 6 hr Loperamide 10 mg q 6 hr prn diarrhea (5) Anemia Status: Acute Plan: Likely secondary to malnutrition - Daily CBCs and transfuse as needed (6) Hypokalemia Status: Acute Plan: Resolved with oral potassium supplementation Follow daily BMPs Problem Qualifiers (1) Chest pain: Qualified Code: R07.1 - Chest pain on breathing Harjinder Hensley MD Jun 25, 2016 11:01
--- NOTE | 2016-06-25 11:44 | RADRPT ---
EXAM DATE/TIME: 06/25/2016 10:14 [facility] COMPARISON: No previous studies available for comparison. INDICATIONS : Abscess. MEDICAL HISTORY : Substance abuse. SURGICAL HISTORY : None. ENCOUNTER: Initial ACUITY: 1 week PAIN SCORE: 0/10 LOCATION: Left wrist. AREA EVALUATED: Left anterior wrist. FINDINGS: There is a heterogeneous echogenicity mass at the site of the palpable abnormality. A drainable fluid collection is not identified. Neoplasm is not excluded. MRI with contrast is recommended for further evaluation if clinically indicated. CONCLUSION: 1. Heterogeneous mass at the site of the palpable abnormality measuring 2.6 cm in diameter. MRI is re commended for further evaluation if clinically indicated. Michael Rodriguez MD on June 25, 2016 at 11:41 Board Certified Radiologist. This report was verified electronically.
--- NOTE | 2016-06-25 13:11 | EKG ---
Date Performed: 06/24/2016 Time Performed: 12:45:26 PTAGE: 30 years EKG: Sinus rhythm INDETERMINATE AXIS POSSIBLE RIGHT VENTRICULAR CONDUCTION DELAY BORDERLINE ECG NO PREVIOUS TRACING DOCTOR: Michael Foss Interpretating Date/Time 06/25/2016 13:10:10
[2016-06-25] MEDS: AZITHROMYCIN 250 MG TAB PO SCH (16:23)
[2016-06-25] MEDS: METHADONE HCL 10 MG TAB PO SCH (16:24)
--- NOTE | 2016-06-25 17:13 | EC ---
Study Study Date:06/25/2016 STUDY CONCLUSIONS SUMMARY - Left ventricle: The cavity size was normal. Wall thickness was normal. Systolic function was normal. The estimated ejection fraction was in the range of 55% to 60%. Wall motion was normal; there were no regional wall motion abnormalities. - Aortic valve: Valve area: 2.93cm^2 (Vmax). - Tricuspid valve: Mild-moderate regurgitation. - Pulmonary arteries: PA peak pressure: 33mm Hg (S). If LV function is below 40, please consider prescribing an ACEI or ARB or document rationale for non-use. PROCEDURE DATA STUDY STATUS: Elective. Procedure: Transthoracic echocardiography. Image quality was good. Scanning was performed from the parasternal, apical, and subcostal acoustic windows. Study completion: The patient tolerated the procedure well. Transthoracic echocardiography. M-mode, complete 2D, complete spectral Doppler, and color Doppler. Height: Height: 68in. Weight: Weight: 129.7lb. Body mass index: BMI: 19.8kg/m^2. Body surface area: BSA: 1.7m^2. Patient status: Inpatient. CARDIAC ANATOMY LEFT VENTRICLE: The cavity size was normal. Wall thickness was normal. Systolic function was normal. The estimated ejection fraction was in the range of 55% to 60%. Wall motion was normal; there were no regional wall motion abnormalities. AORTIC VALVE: Trileaflet; normal thickness leaflets. Doppler: Transvalvular velocity was within the normal range. There was no stenosis. No regurgitation. Valve area: 2.93cm^2 (Vmax). Indexed valve area: 1.72cm^2/m^2 (Vmax). AORTA: Aortic root: The aortic root was normal in size. MITRAL VALVE: Structurally normal valve. Doppler: Transvalvular velocity was within the normal range. There was no evidence for stenosis. No regurgitation. Peak gradient: 7mm Hg (D). LEFT ATRIUM: The atrium was normal in size. RIGHT VENTRICLE: The cavity size was normal. Wall thickness was normal. PULMONIC VALVE: Doppler: Transvalvular velocity was within the normal range. There was no evidence for stenosis. No regurgitation. TRICUSPID VALVE: Structurally normal valve. Doppler: Transvalvular velocity was within the normal range. Mild-moderate regurgitation. PULMONARY ARTERY: The main pulmonary artery was normal-sized. Systolic pressure was within the normal range. RIGHT ATRIUM: The atrium was normal in size. PERICARDIUM: There was no pericardial effusion. SYSTEMIC VEINS: Inferior vena cava: The vessel was normal in size. Patient weight: 129.7lb _Ejection fraction:_ 65-75% _Fractional shortening:_ 32% up to 5Kg 5-11.5Kg 11.6-22.9Kg 23-45Kg 45-57Kg Aortic Root 7-13 <17 13-22 17-27 17-27 LA diam 6-13 <23 24-38 33-47 37-40 RVID 10-17 7-15 7-15 7-18 8-17 LVIDd 12-22 <32 24-38 33-47 37-40 LVPW 2-4 3-6 5-7 6-8 7-8 IVS 2-4 3-6 5-7 6-8 7-8 BASIC MEASUREMENTS ADULT NORMAL Left ventricle LV internal dimension, ED, chordal *38.5 mm 43-52 level, PLAX LV internal dimension, ES, chordal 23.1 mm 23-38 level, PLAX Fractional shortening, chordal level, 40 % >29 PLAX LV posterior wall thickness, ED 7.8 mm IVS/LVPW ratio, ED 1.02 <1.3 Ventricular septum Septal thickness, ED 7.95 mm Aortic valve Leaflet separation 18 mm 15-26 Right ventricle RV internal dimension, ED, PLAX 26.8 mm 19-38 BASIC MEASUREMENTS ADULT NORMAL Aortic valve Leaflet separation 18 mm 15-26 Aorta Root diameter, ED 25 mm 20-37 Left atrium Anterior-posterior dimension, ES 33 mm 19-40 Anterior-posterior dimension index, ES 1.94 cm/m^2 <2.2 LA/aortic root ratio 1.32 DOPPLER MEASUREMENTS ADULT NORMAL Main pulmonary artery Pressure, S *33 mm Hg =30 Pressure, ED 15 mm Hg Aortic valve Peak velocity, S 151 cm/s Valve area, Vmax 2.93 cm^2 Valve area index, Vmax 1.72 cm^2/m^2 Mitral valve Peak E-wave velocity 132 cm/s Peak A-wave velocity 44.4 cm/s Deceleration time 218 ms 150-230 Peak gradient, D 7 mm Hg Peak E/A ratio 3 Maximal regurgitant velocity 410 cm/s Tricuspid valve Regurgitant peak velocity 276 cm/s Peak RV-RA gradient, S 30 mm Hg Maximal regurgitant velocity 276 cm/s Systemic veins Estimated CVP 10 mm Hg Right ventricle RV pressure, S *40 mm Hg <30 Pulmonic valve Peak velocity, S 128 cm/s Regurgitant velocity, ED 110 cm/s LEGEND: Mean values are shown as u=mean value. Asterisk (*) smyth values outside specified normal range. Prepared and signed by Hector Grant [id number]
--- NOTE | 2016-06-25 21:15 | MB ---
cc: ELVIRA GARCIA MD DATE OF CONSULTATION 06/25/[address] Wakefield. REASON FOR CONSULTATION Possible endocarditis. The patient with a new murmur on exam. Questionable septic emboli to lungs. IV drug abuse. HISTORY OF PRESENT ILLNESS This is a 30-year-old white female who presented to the emergency department with chest pain. The patient is a known IV drug user. She injects IV heroin into her forearm. She was evaluated in the emergency department and underwent a chest x-ray which showed possible airspace consolidation. CT scan of the chest revealed patchy somewhat nodular airspace disease in both lungs which could be a manifestation of septic pulmonary emboli. CT angiogram was negative for pulmonary embolus. The patient continued to experience pain in the chest on the right side posteriorly and anteriorly. She denies chills. She also denies nausea or vomiting. An ultrasound shows a 2.6 cm diameter abnormality at the left forearm near the wrist. A drainable fluid collection could not be identified. The patient has a raised nodular lesion at the left wrist at the medial aspect. She is afebrile. However, she did a temperature elevation of 100.4 degrees yesterday evening. White blood cell count is normal. Platelet count is low at 129. Her differential yesterday revealed 21% bands. Preliminary blood culture has no growth at one day. A 2-D echocardiogram was performed and does not reveal any cardiac valve lesion or vegetation. PAST MEDICAL HISTORY Unremarkable. ALLERGIES TRAMADOL MEDICATIONS 1. Vancomycin. 2. Methadone. 3. Zithromax. 4. Ceftriaxone. 5. DuoNeb. 6. Percocet 10 p.r.n. 7. Morphine sulfate p.r.n. SOCIAL HISTORY The patient smokes a pack of cigarettes a day. No alcohol use. Positive IV drug use. FAMILY HISTORY Noncontributory. REVIEW OF SYSTEMS Negative except for chest pain. PHYSICAL EXAMINATION GENERAL: This is a slender well-developed female who is in no acute distress. She is awake and alert and oriented. VITAL SIGNS: Temperature 97.5, BP 99/64, respirations 18, heart rate 68. HEENT: Head is atraumatic. Extraocular movements grossly intact, pupils reactive to light without icterus. Oropharynx no visible lesions. Moist mucosa. NECK: Supple without adenopathy. LUNGS: Rhonchi with tubular breath sounds bilateral. HEART: 1-2/6 systolic murmur at the left sternal border. CHEST: Tenderness on palpation of the anterior right chest and also posterior right upper back over the scapular region. RECTAL: Not performed. EXTREMITIES: No clubbing or cyanosis. The patient has a nodular cystic lesion over the left wrist. No palpable cords. No splinter hemorrhages at the nail beds. No peripheral embolic lesions visible. SKIN: Multiple tattoos throughout to the chest, torso and legs and arms. NEUROLOGIC: No gross focal findings. PSYCHIATRIC: The patient is calm and cooperative. LABORATORY DATA WBC 5.8, platelet count 129, hemoglobin 9.6, 52% neutrophils, 35% lymphocytes, 11% monocytes. Creatinine 0.62, BUN four, sodium 139. Liver function tests normal. IMPRESSION 1. Septic pulmonary emboli in patient with IV drug use history. 2. Rule out endocarditis RECOMMENDATIONS 1. Continue vancomycin 2. Continue Zithromax 3. Continue ceftriaxone 4. Monitor blood cultures 5. Obtain sputum culture 6. Obtain nasal MRSA screen 7. Monitor blood cultures until final. The lesion at the left forearm certainly could be related to infection and likely is associated with the pulmonary lesions which makes septic emboli of the lungs the more likely diagnosis in this patient. Thank you for this consultation. The patient's progress will be monitored and further recommendations will be given upon followup if necessary. Elvira Garcia MD FD/ /6:57 PM /8:51 PM JONATHAN
[2016-06-26] MEDS: cefTRIAXone INJ 1,000 MG in SODIUM CHLORIDE 0.9% INJ 100 ML IV SCH ×2 (00:57→22:00)
[2016-06-26] MEDS: RESP: ALBUTEROL 2.5 MG/IPRATROPIUM 0.5 MG NEB (SCH) INH ×2 (03:32→10:00)
[2016-06-26] MEDS: SODIUM CHLOR 0.9% 1000 ML INJ 1,000 ML IV SCH ×3 (07:35→20:43)
[2016-06-26] MEDS ORDERED: PHARMACY ORDERED LAB ONE (07:45)
[2016-06-26 07:56] VITALS: PULSE 47
[2016-06-26 08:06] VITALS: BP 100/64; PULSE 59; RESP 14; TEMP 97.6; O2SAT 98
--- NOTE | 2016-06-26 08:17 | HHI.FPPN ---
Subjective Remarks pt wondering when she can go home. Chest pain is improving, still some discomfort with inspiration. No cough. + nightsweats last night, which she attributes to withdrawal from opiates. Denies SOB, N, V, diarrhea. She is ambulating without difficulty. She has be AF and VSS and at goal for past 24 hours. (Bello Howell MD R2) Objective Vitals Vital Signs Date Time Temp Pulse Resp B/P Pulse Ox O2 Delivery O2 Flow Rate FiO2 06/26/16 08:06 97.6 59 14 100/64 98 06/26/16 07:56 47 06/26/16 00:10 21 06/25/16 23:54 97.8 55 18 100/58 97 06/25/16 21:00 73 06/25/16 19:08 98.5 74 20 101/56 95 06/25/16 17:40 18 06/25/16 16:06 97.5 68 20 99/64 98 06/25/16 11:46 97.8 61 18 96/57 97 I/O 06/25/16 06/25/16 06/25/16 06/26/16 06/26/16 06/26/16 07:00 15:00 23:00 07:00 15:00 23:00 Intake Total 1010 ml Balance 1010 ml Intake Oral 250 ml IV Total 760 ml # Voids 1 3 (Bello Howell MD R2) Result Diagram: 06/25/16 0435 06/25/16 0435 Imaging Last Impressions Upper Extremity Ultrasound 06/25/16 0000 Signed Impressions: Service Date/Time: May 10:14 - CONCLUSION: 1. Heterogeneous mass at the site of the palpable abnormality measuring 2.6 cm in diameter. MRI is recommended for further evaluation if clinically indicated. Michael Rodriguez MD CT Angiography 06/24/16 1652 Signed Impressions: Service Date/Time: Friday, June 24, 2016 18:42 - CONCLUSION: 1. Scattered nodular densities throughout both lungs as described above. Differential includes nodular infiltrates or true pulmonary nodules. 2. No evidence of pulmonary emboli. 3. Hepatosplenomegaly. Nikita Garcia MD Chest CT 06/24/16 1448 Signed Impressions: Service Date/Time: Friday, June 24, 2016 15:40 - CONCLUSION: Patchy somewhat nodular air space disease in both lungs. This could be a manifestation of septic pulmonary emboli in the appropriate clinical circumstance. These are most likely inflammatory and multifocal. Dani Cano MD FACR Chest X-Ray 06/24/16 1350 Signed Impressions: Service Date/Time: Friday, June 24, 2016 13:59 - CONCLUSION: 1. Possible air space process/consolidation medially in the right upper lobe and questionable nodular density just above the right hemidiaphragm. Noncontrasted CT scan of the chest could be performed for confirmation if clinically warranted. 2. Heart size is normal. Left lung is clear. Bala Palomares MD Objective Remarks GENERAL: Healthy-appearing young woman, lying in bed in no obvious distress SKIN: Multiple tattoos - track smyth and bruises on forearms. No splinter hemorrhages noted. Left wrist on the flexor aspect with a 1 cm x 1 cm raised lesion, nonfluctuant with no obvious drainage. Area is mildly erythematous but is not warm to touch. HEAD: Atraumatic. Normocephalic. EYES: Pupils equal round and reactive. Extraocular motions intact. No scleral icterus. NECK: Trachea midline. No JVD or lymphadenopathy. Supple, nontender, no meningeal signs. CARDIOVASCULAR: Regular rate and rhythm. 2/6 ejection systolic. RESPIRATORY: Lung jordan were clear to auscultation with occasional expiratory wheezes GASTROINTESTINAL: Abdomen soft, non-tender, nondistended. MUSCULOSKELETAL: Extremities without clubbing, cyanosis, or edema. No splinter hemorrhages noted under nails. NEUROLOGICAL: Awake and alert. Cranial nerves II through XII intact. Motor and sensory grossly within normal limits. Five out of 5 muscle strength in all muscle groups. Normal speech. (Bello Howell MD R2) A/P Assessment and Plan Mrs. Cummins is a 30 y/o f with PMH of IVDU, presenting to the [place] emergency department after 5 days of general malaise and flulike symptoms, followed by acute onset shortness of breath and right-sided chest pain. She was found to have patchy, nodular airspace disease in both lungs that could possibly be a manifestation of septic pulmonary emboli. (Bello Howell MD R2) Attending Attestation Pt. examined and case discussed with resident physicians I have read the above note and agree with the assessment/plan as discussed with me I was involved in all medical decision making for this patient Harjinder Hensley MD (Harjinder Hensley MD) Problem List: (1) Pulmonary infiltrates Status: Acute Plan: Inflammatory nodules versus septic pulmonary emboli versus pneumonia Broad-spectrum antibiotics to cover for possible pneumonia as well as possible endocarditis - Vancomycin 1 g IV every 12 hours (06/24 first dose -- ) - Azithromycin 500 mg by mouth every 24 hours (06/24 -- ) - Rocephin 1 g IV every 24 hours (06/24 -- ) 2-D echocardiogram showed no vegetations - with mild to moderate regurgitation of tricuspid. Consult infectious disease, we appreciate their recommendations. Continuous pulse ox, O2 1-4 L goal Ox > 95% Breathing tx as above Monitor on telemetry Blood cultures 2 neg x 24 hours. IV abx until bld cx neg x 3 days (tomorrow 06/27) (2) Chest pain Status: Acute Plan: Concern is for infectious endocarditis - Patient has 3 minor criteria, no major criteria (veg or +bld cx) - Recent IV drug use - Febrile up to 100.4 - Possible pulmonary emboli Blood cultures 2 no growth x 24 hours Echocardiogram no vegetations Initial cardiac troponin was within normal limits Possible source of infection of the left wrist, US heterogeneous mass measuring 2.6 cm, reduced in size and inflammation today on exam. Pain control as below: Pain control with Percocet 10-325, 1 and 2 tablets for pain 1-5 and 6-10 respectively Morphine 2 mg q 3 hr breakthrough Scheduled DuoNeb's every 6 hours (3) Heart murmur Status: Acute Plan: Tricuspid regurgitation (4) IV drug abuse Status: Acute Plan: CIWA protocol in place for agitation. Possibility of withdrawal during hospitalization. We'll add clonidine 0.1 mg every 3 hours when necessary withdrawal/tachycardia ( hold parameters) Baclofen 5 mg for muscle cramps PRN q 6 hr Loperamide 10 mg q 6 hr prn diarrhea (5) Anemia Status: Acute Plan: Likely secondary to malnutrition - Daily CBCs and transfuse as needed (6) Hypokalemia Status: Acute Plan: Resolved with oral potassium supplementation Follow daily BMPs wdw Dr. Hensley ([place] MD R2) Problem Qualifiers (1) Chest pain: Qualified Code: R07.1 - Chest pain on breathing Bello Howell MD R2 Jun 26, 2016 08:17 Harjinder Hensley MD Jun 26, 2016 18:12
[2016-06-26] MEDS: METHADONE HCL 10 MG TAB PO SCH (08:24)
[2016-06-26] MEDS: SODIUM CHLORIDE 0.9% FLUSH 10 ML FLUSH IV FLUSH SCH ×2 (08:29→20:43)
[2016-06-26 09:32] LABS: AUTOMATED NEUTROPHIL # 2.6 TH/MM3 (1.8-7.7); BASOPHIL % 0.6 % (0.0-2.0); EOSINOPHIL % 1.1 % (0.0-4.0); HEMATOCRIT 31.9 % (35.0-46.0); LYMPH % 31.5 % (9.0-44.0); LYMPHOCYTE # 1.5 TH/MM3 (1.0-4.8); MEAN CELL VOLUME 74.4 FL (80.0-100.0); MEAN CORPUSCULAR HEMOGLOBIN 24.8 PG (27.0-34.0); MEAN CORPUSCULAR HGB CONC 33.4 % (32.0-36.0); MONO % 9.8 % (0.0-8.0); PLATELET COUNT 143 TH/MM3 (150-450); RED BLOOD COUNT 4.29 MIL/MM3 (4.00-5.30); WHITE BLOOD COUNT 4.6 TH/MM3 (4.0-11.0)
[2016-06-26] MEDS: oxyCODONE/ACETAMINOPHEN 10 MG/325 MG TAB PO PRN ×2 (09:34→20:09)
[2016-06-26 09:37] LABS: HEMO FLAGS AUTO DIFF
[2016-06-26 09:48] LABS: ALKALINE PHOSPHATASE 94 U/L (45-117); ALT (GPT) 24 U/L (10-53); ANION GAP 8 MEQ/L (5-15); AST (GOT) 20 U/L (15-37); BICARBONATE 24.9 MEQ/L (21.0-32.0); BLOOD UREA NITROGEN 4 MG/DL (7-18); CHLORIDE 107 MEQ/L (98-107); GLOMERULAR FILTRATION RATE 131 ML/MIN (>89); POTASSIUM 3.7 MEQ/L (3.5-5.1); SODIUM (NA) 140 MEQ/L (136-145); TOTAL BILIRUBIN ADULT 0.5 MG/DL (0.2-1.0)
[2016-06-26] MEDS: VANCOMYCIN INJ 1,000 MG in SODIUM CHLOR 0.9% 250 ML INJ 250 ML IV SCH ×2 (10:06→17:29)
[2016-06-26 10:24] LABS: PLATELET ESTIMATE SMEAR LOW (NORMAL); PLATELET MORPHOLOGY NORMAL (NORMAL); SCAN/DIFF AUTO DIFF CONFIRMED
[2016-06-26] MEDS ORDERED: CLIN1CAP6 PO (13:17)
[2016-06-26 16:00] VITALS: BP 89/56; PULSE 51; RESP 16; TEMP 97.6; O2SAT 98
[2016-06-26] MEDS: AZITHROMYCIN 250 MG TAB PO SCH (17:28)
--- NOTE | 2016-06-26 19:00 | HHI.IDPN ---
Note Infectious Disease Note Patient says she feels better. Notes the pain in her chest is better. No chills. No significant cough. No hemoptysis. Afebrile. Blood culture has no growth. PAST MEDICAL HISTORY Unremarkable. ALLERGIES TRAMADOL Current Medications Medications (Trade) Dose Ordered Sig/Arianna Route PRN Reason Start Time Stop Time Status Last Admin Dose Admin Sodium Chloride (NS 1000 ml Inj) 1,000 ml @ 100 mls/hr Q10H IV 06/24/16 21:00 06/26/16 07:35 Sodium Chloride (NS Flush) 2 ml UNSCH PRN IV FLUSH FLUSH AFTER USING IV ACCESS 06/24/16 20:30 Sodium Chloride (NS Flush) 2 ml BID IV FLUSH 06/24/16 21:00 06/25/16 23:03 Ondansetron HCl (Zofran Inj) 4 mg Q6H PRN IVP NAUSEA OR VOMITING 06/24/16 20:30 Magnesium Hydroxide (Milk Of Joseluis [place]oq) 30 ml Q12H PRN PO CONSTIPATION 06/24/16 20:30 Temazepam (Restoril) 15 mg HS PRN PO INSOMNIA 06/24/16 21:00 Enoxaparin Sodium (Lovenox Inj) 40 mg Q24H SQ 06/24/16 21:00 06/24/16 21:37 Naloxone HCl 0.4 mg 0.4 mg UNSCH PRN IV SEE LABEL COMMENTS 06/24/16 20:30 Ceftriaxone Sodium 1000 mg/ Sodium Chloride 100 ml @ 200 mls/hr Q24H IV 06/24/16 22:00 06/26/16 00:57 Pharmacy Profile Note (Vancomycin Consult Pharmacy) 0 ml @ 0 mls/hr UNSCH OTHER 06/24/16 20:30 Azithromycin (Zithromax) 500 mg Q24H PO 06/25/16 17:00 06/27/16 16:59 06/26/16 17:28 Oxycodone/ Acetaminophen (Percocet 10-325 Mg) 1 tab Q6H PRN PO PAIN SCALE 1 TO 5 06/24/16 20:30 Oxycodone/ Acetaminophen (Percocet 10-325 Mg) 2 tab Q6H PRN PO PAIN SCALE 6 TO 10 06/24/16 20:30 06/26/16 09:34 Baclofen (Lioresal) 10 mg Q8HR PRN PO MUSCLE CRAMPS 06/24/16 23:45 Diphenoxylate HCl/ Atropine (Lomotil Tab) 1 tab Q6H PRN PO DIARRHEA 06/24/16 23:45 Clonidine (Catapres) 0.1 mg Q3HR PRN PO WITHDRAWAL 06/24/16 23:45 Methadone HCl 30 mg 30 mg DAILY PO 06/25/16 15:00 06/26/16 08:24 Vancomycin HCl/ Sodium Chloride (Vancomycin Inj/ NS 250 ml Inj) 250 ml @ 250 mls/hr Q8H IV 06/26/16 18:00 06/26/16 17:29 Miscellaneous Information SPECIFIC LAB TO BE OLEKSANDR... ONCE ONCE .XX 06/27/16 09:45 06/27/16 09:46 SOCIAL HISTORY The patient smokes a pack of cigarettes a day. No alcohol use. Positive IV drug use. FAMILY HISTORY Noncontributory. REVIEW OF SYSTEMS Negative except for chest pain. OBJECTIVE: Vital Signs Date Time Temp Pulse Resp B/P Pulse Ox O2 Delivery O2 Flow Rate FiO2 06/26/16 16:00 97.6 51 16 89/56 98 06/26/16 11:28 06/26/16 09:24 18 06/26/16 08:06 97.6 59 14 100/64 98 06/26/16 07:56 47 06/26/16 00:10 21 06/25/16 23:54 97.8 55 18 100/58 97 06/25/16 21:00 73 06/25/16 19:08 98.5 74 20 101/56 95 06/25/16 06/25/16 06/26/16 15:00 23:00 07:00 Intake Total 1010 ml Balance 1010 ml Intake Oral 250 ml IV Total 760 ml # Voids 1 3 Laboratory Tests Test 06/25/16 06/26/16 04:35 09:16 White Blood Count 5.8 TH/MM3 4.6 TH/MM3 Red Blood Count 3.93 MIL/MM3 4.29 MIL/MM3 Hemoglobin 9.6 GM/DL 10.7 GM/DL Hematocrit 29.1 % 31.9 % Mean Corpuscular Volume 73.9 FL 74.4 FL Mean Corpuscular Hemoglobin 24.5 PG 24.8 PG Mean Corpuscular Hemoglobin 33.1 % 33.4 % Concent Red Cell Distribution Width 14.9 % 15.0 % Platelet Count 129 TH/MM3 143 TH/MM3 Mean Platelet Volume 7.8 FL 7.5 FL Neutrophils (%) (Auto) 52.9 % 57.0 % Lymphocytes (%) (Auto) 35.6 % 31.5 % Monocytes (%) (Auto) 11.0 % 9.8 % Eosinophils (%) (Auto) 0.3 % 1.1 % Basophils (%) (Auto) 0.2 % 0.6 % Neutrophils # (Auto) 3.0 TH/MM3 2.6 TH/MM3 Lymphocytes # (Auto) 2.1 TH/MM3 1.5 TH/MM3 Monocytes # (Auto) 0.6 TH/MM3 0.5 TH/MM3 Eosinophils # (Auto) 0.0 TH/MM3 0.0 TH/MM3 Basophils # (Auto) 0.0 TH/MM3 0.0 TH/MM3 CBC Comment AUTO DIFF AUTO DIFF Differential Comment AUTO DIFF AUTO DIFF CONFIRMED CONFIRMED Platelet Estimate LOW LOW Platelet Morphology Comment NORMAL NORMAL Laboratory Tests Test 06/24/16 06/25/16 06/26/16 19:17 04:35 09:16 Lactic Acid Level 0.8 mmol/L Sodium Level 139 MEQ/L 140 MEQ/L Potassium Level 3.5 MEQ/L 3.7 MEQ/L Chloride Level 103 MEQ/L 107 MEQ/L Carbon Dioxide Level 27.9 MEQ/L 24.9 MEQ/L Anion Gap 8 MEQ/L 8 MEQ/L Blood Urea Nitrogen 4 MG/DL 4 MG/DL Creatinine 0.62 MG/DL 0.55 MG/DL Estimat Glomerular Filtration 114 ML/MIN 131 ML/MIN Rate Random Glucose 95 MG/DL 97 MG/DL Calcium Level 8.4 MG/DL 8.8 MG/DL Total Bilirubin 0.4 MG/DL 0.5 MG/DL Aspartate Amino Transf 29 U/L 20 U/L (AST/SGOT) Alanine Aminotransferase 26 U/L 24 U/L (ALT/SGPT) Alkaline Phosphatase 95 U/L 94 U/L Total Protein 7.3 GM/DL 8.0 GM/DL Albumin 2.6 GM/DL 2.8 GM/DL Microbiology Date/Time Procedure Status Source Growth 06/24/16 17:25 Aerobic Blood Culture - Preliminary Resulted Blood Peripheral NO GROWTH IN 2 DAYS 06/24/16 17:25 Anaerobic Blood Culture - Preliminary Resulted Blood Peripheral NO GROWTH IN 2 DAYS 06/24/16 17:25 Aerobic Blood Culture - Preliminary Resulted Blood Peripheral NO GROWTH IN 2 DAYS 06/24/16 17:25 Anaerobic Blood Culture - Preliminary Resulted Blood Peripheral NO GROWTH IN 2 DAYS 06/25/16 01:52 Influenza Types A,B Antigen (KING) - Final Complete Nasal Aspirate NEGATIVE FOR FLU A AND B ANTIGEN.... 06/25/16 02:00 Legionella Antigen - Final Complete Urine Clean Catch PRESUMPTIVE NEGATIVE FOR LEGIONELLA P... 06/25/16 02:00 Streptococcus pneumoniae Antigen (M - Final Complete Urine Clean Catch PRESUMPTIVE NEGATIVE FOR STREPTOCOCCU... PHYSICAL EXAMINATION GENERAL: No acute distress. She is awake and alert and oriented. HEENT: Head is atraumatic. Extraocular movements grossly intact, pupils reactive to light without icterus. Oropharynx no visible lesions. Moist mucosa. NECK: Supple without adenopathy. LUNGS: Rhonchi with tubular breath sounds bilateral. HEART: 1-2/6 systolic murmur at the left sternal border. EXTREMITIES: No clubbing or cyanosis. Nodular cystic lesion over the left wrist same. No palpable cords. No splinter hemorrhages at the nail beds. No peripheral embolic lesions visible. SKIN: Multiple tattoos throughout to the chest, torso and legs and arms. NEUROLOGIC: No gross focal findings. PSYCHIATRIC: The patient is calm and cooperative. IMPRESSION Septic pulmonary emboli in patient with IV drug use history. No vegetation on ECHO. Does not appear to have endocarditis. RECOMMENDATIONS 1. Continue vancomycin 2. Stop Zithromax 3. Continue ceftriaxone 4. Monitor blood cultures 5. If blood culture is negative she can be discharged on PO clindamycin 300mg tid x 21 days. Follow up with her primary MD. She should have serial CXR until resolution of the lung lesions. If positive blood cultures she will need to continue IV antibiotics and have a PASHA. Patient encouraged to stop using IV drugs. Buster Baeza MD Jun 26, 2016 19:00
[2016-06-26 20:00] VITALS: PULSE 59
[2016-06-26] MEDS: ENOXAPARIN SODIUM 40 MG/0.4 ML SYRINGE SQ SCH (20:43)
[2016-06-27 01:39] VITALS: BP 96/53; PULSE 75; RESP 20; TEMP 97.9; O2SAT 99
[2016-06-27] MEDS: VANCOMYCIN INJ 1,000 MG in SODIUM CHLOR 0.9% 250 ML INJ 250 ML IV SCH (01:58)
[2016-06-27] MEDS: oxyCODONE/ACETAMINOPHEN 10 MG/325 MG TAB PO PRN (02:07)
[2016-06-27] MEDS: RESP: ALBUTEROL 2.5 MG/IPRATROPIUM 0.5 MG NEB (SCH) INH ×2 (03:13→09:46)
[2016-06-27 04:00] VITALS: PULSE 58
--- NOTE | 2016-06-27 06:54 | HHI.DCPOC ---
Discharge Care Plan Diagnosis: (1) Septic pulmonary embolism (2) Chest pain Goals to Promote Your Health * To prevent worsening of your condition and complications * To maintain your health at the optimal level Directions to Meet Your Goals Take your medications as prescribed. Please continue Cleocin until it is gone. Follow your dietary instruction Follow activity as directed Follow up with your doctor in one week, you will need repeat chest x-ray Keep your appointments as scheduled Take your immunizations and boosters as scheduled If your symptoms worsen call your PCP, if no PCP go to Urgent Care Center or Emergency Room Smoking is Dangerous to Your Health. Avoid second hand smoke Call the 24-hour hour crisis hotline for domestic abuse at Mally Foss MD R1 Jun 27, 2016 06:54
--- NOTE | 2016-06-27 07:54 | HHI.FPPN ---
Subjective Remarks Patient was seen and examined this morning. She refused IV antibiotics overnight per nursing staff; patient states she did not refuse anything. She also has refused Lovenox multiple doses. She wants to go home, denies any new symptoms and denies having chest pain, shortness of breath, wheezing, headache, extremity pain. No BM documented but she had one 06/26. (Mally Foss MD R1) Objective Vitals Vital Signs Date Time Temp Pulse Resp B/P Pulse Ox O2 Delivery O2 Flow Rate FiO2 06/27/16 04:00 58 06/27/16 01:39 97.9 75 20 96/53 99 06/26/16 20:00 59 06/26/16 16:00 97.6 51 16 89/56 98 06/26/16 11:28 06/26/16 09:24 18 06/26/16 08:06 97.6 59 14 100/64 98 06/26/16 07:56 47 I/O 06/26/16 06/26/16 06/26/16 06/27/16 06/27/16 06/27/16 07:00 15:00 23:00 07:00 15:00 23:00 Intake Total 1010 ml Balance 1010 ml Intake Oral 250 ml IV Total 760 ml # Voids 3 1 (Mally Foss MD R1) Result Diagram: 06/26/16 0916 06/26/16 0916 Imaging Last Impressions Upper Extremity Ultrasound 06/25/16 0000 Signed Impressions: Service Date/Time: May 10:14 - CONCLUSION: 1. Heterogeneous mass at the site of the palpable abnormality measuring 2.6 cm in diameter. MRI is recommended for further evaluation if clinically indicated. Michael Rodriguez MD CT Angiography 06/24/16 1652 Signed Impressions: Service Date/Time: Friday, June 24, 2016 18:42 - CONCLUSION: 1. Scattered nodular densities throughout both lungs as described above. Differential includes nodular infiltrates or true pulmonary nodules. 2. No evidence of pulmonary emboli. 3. Hepatosplenomegaly. Nikita Garcia MD Chest CT 06/24/16 1448 Signed Impressions: Service Date/Time: Friday, June 24, 2016 15:40 - CONCLUSION: Patchy somewhat nodular air space disease in both lungs. This could be a manifestation of septic pulmonary emboli in the appropriate clinical circumstance. These are most likely inflammatory and multifocal. Dani Cano MD FACR Chest X-Ray 06/24/16 1350 Signed Impressions: Service Date/Time: Friday, June 24, 2016 13:59 - CONCLUSION: 1. Possible air space process/consolidation medially in the right upper lobe and questionable nodular density just above the right hemidiaphragm. Noncontrasted CT scan of the chest could be performed for confirmation if clinically warranted. 2. Heart size is normal. Left lung is clear. Bala Palomares MD Objective Remarks GENERAL: Healthy-appearing young woman, lying in bed in no obvious distress. SKIN: Multiple tattoos - track smyth and bruises on forearms. No splinter hemorrhages noted. Left wrist on the flexor aspect with a 0.5cm x 0.5 cm raised lesion, smaller than previous exams. No longer erythematous. HEAD: Atraumatic. Normocephalic. EYES: Pupils equal round and reactive. Extraocular motions intact. No scleral icterus. NECK: Trachea midline. No JVD or lymphadenopathy. Supple, nontender, no meningeal signs. CARDIOVASCULAR: Regular rate and rhythm. 2/6 ejection murmur systolic. RESPIRATORY: Lung jordan were clear to auscultation without wheezes or crackles. GASTROINTESTINAL: Abdomen soft, non-tender, nondistended. MUSCULOSKELETAL: Extremities without clubbing, cyanosis, or edema. No splinter hemorrhages noted under nails. NEUROLOGICAL: Awake and alert. Cranial nerves II through XII intact. Motor and sensory grossly within normal limits. Five out of 5 muscle strength in all muscle groups. Normal speech. Medications and IVs Inpatient Medications Albuterol/ Ipratropium (Duoneb Neb) 1 ampule Q6HR NEB INH Last administered on 06/27/16 03:13; Start 06/24/16 at 22:00 Aspirin (Aspirin Chew) 81 mg ONCE ONCE PO ; Start 06/24/16 at 14:00; Stop 06/24 at 14:50; Status DC Azithromycin (Zithromax) 500 mg Q24H PO Last administered on 06/26/16 17:28; Start 06/25/16 at 17:00; Stop 06/27/16 at 06:50; Status DC Baclofen (Lioresal) 10 mg Q8HR PRN PO MUSCLE CRAMPS; Start 06/24/16 at 23:45 Ceftriaxone Sodium 1000 mg/ Sodium Chloride 100 ml @ 200 mls/hr Q24H IV Last administered on 06/26/16 00:57; Start 06/24/16 at 22:00 Chlorphenir/ Hydrocodone Polistirex (Tussionex Liq) 5 ml ONCE ONCE PO Last administered on 06/24/16 17:07; Start 06/24/16 at 16:15; Stop 06/24/16 at 16:16 ; Status DC Clindamycin HCl (Cleocin) 300 mg Q8H PO ; Start 06/27/16 at 08:00 Clonidine (Catapres) 0.1 mg Q3HR PRN PO WITHDRAWAL; Start 06/24/16 at 23:45 Diphenoxylate HCl/ Atropine (Lomotil Tab) 1 tab Q6H PRN PO DIARRHEA; Start at 23:45 Enoxaparin Sodium (Lovenox Inj) 40 mg Q24H SQ Last administered on 06/24/16 21 :37; Start 06/24/16 at 21:00 Flumazenil (Romazicon Inj) 0.2 mg Q1M PRN IV PUSH SEE LABEL COMMENTS; Start at 20:30; Stop 06/25/16 at 12:10; Status DC Lorazepam (Ativan Inj) 2 mg Q1H PRN IV PUSH CIWA 15-20; Start 06/24/16 at 20:30 ; Stop 06/25/16 at 12:10; Status DC Lorazepam (Ativan) 2 mg Q2H PRN PO CIWA 11-14; Start 06/24/16 at 20:30; Stop at 12:10; Status DC Lorazepam 2 mg 2 mg Q15M PRN IV PUSH CIWA > 20; Start 06/24/16 at 20:30; Stop 06/25/16 at 12:10; Status DC Magnesium Hydroxide (Milk Of Magnesia Liq) 30 ml Q12H PRN PO CONSTIPATION; Start 06/24/16 at 20:30 Methadone HCl 30 mg 30 mg DAILY PO Last administered on 06/26/16 08:24; Start 06/25/16 at 15:00 Miscellaneous Information SPECIFIC LAB TO BE ... ONCE ONCE .XX ; Start at 09:45; Stop 06/27/16 at 09:46 Morphine Sulfate (Morphine Inj) 2 mg Q3H PRN IV PUSH BREAKTHROUGH PAIN Last administered on 06/25/16 04:53; Start 06/24/16 at 20:30; Stop 06/26/16 at 09:03 ; Status DC Naloxone HCl (Narcan Inj) 0.4 mg UNSCH PRN IV SEE LABEL COMMENTS; Start at 20:30 Ondansetron HCl (Zofran Inj) 4 mg Q6H PRN IVP NAUSEA OR VOMITING; Start at 20:30 Oxycodone/ Acetaminophen (Percocet 10-325 Mg) 2 tab Q6H PRN PO PAIN SCALE 6 TO 10 Last administered on 06/27/16 02:07; Start 06/24/16 at 20:30 Pharmacy Profile Note (Vancomycin Consult Pharmacy) 0 ml @ 0 mls/hr UNSCH OTHER ; Start 06/24/16 at 20:30 Senna/Docusate Sodium (Jenn-Colace) 1 tab DAILY PRN PO CONSTIPATION; Start 06/27 at 08:15; Status UNV Sodium Chloride (NS 1000 ml Inj) 1,000 ml @ 100 mls/hr Q10H IV Last administered on 06/26/16 07:35; Start 06/24/16 at 21:00 Sodium Chloride (NS Flush) 2 ml BID IV FLUSH Last administered on 06/25/16 23: 03; Start 06/24/16 at 21:00 Sodium Chloride 2 ml 2 ml UNSCH PRN IVF FLUSH AFTER USING IV ACCESS; Start at 17:00; Stop 06/24/16 at 20:40; Status DC Temazepam (Restoril) 15 mg HS PRN PO INSOMNIA; Start 06/24/16 at 21:00 Vancomycin HCl 900 mg/Sodium Chloride 259 ml @ 250 mls/hr ONCE ONCE IV Last administered on 06/24/16 20:28; Start 06/24/16 at 19:00; Stop 06/24/16 at 20:02 ; Status DC Vancomycin HCl 1000 mg/Sodium Chloride 250 ml @ 250 mls/hr Q12H IV Last administered on 06/26/16 10:06; Start 06/25/16 at 08:00; Stop 06/26/16 at 10:27 ; Status DC Vancomycin HCl/ Sodium Chloride (Vancomycin Inj/ NS 250 ml Inj) 250 ml @ 250 mls/hr Q8H IV Last administered on 06/26/16t 17:29; Start 06/26/16 at 18:00 ( Mally Foss MD R1) Urinary Catheter: No (Mally Foss MD R1) Vascular Central Line Catheter: No (Mally Foss MD R1) A/P Assessment and Plan Mrs. Cummins is a 30 y/o f with PMH of IVDU, presenting to the [facility] emergency department after 5 days of general malaise and flulike symptoms, followed by acute onset shortness of breath and right-sided chest pain. She was found to have patchy, nodular airspace disease in both lungs that could possibly be a manifestation of septic pulmonary emboli. Discharge Planning Discharge today if blood cultures remain negative this afternoon. She will require follow up with PCP in one week for repeat CXR. She will continue antibiotic therapy with Cleocin for three weeks. She was strongly encouraged to stop using IV drugs. (Mally Foss MD R1) Attending Attestation Pt. examined and case discussed with resident physician I have read the above note and agree with the assessment/plan as discussed with me I was involved in all medical decision making for this patient Harjinder Hensley MD (Harjinder Hensley MD) Problem List: (1) Pulmonary infiltrates Status: Acute Plan: Likely septic emboli. Discontinue IV antibiotics due to patient refusal, transition to Clindamycin PO this morning prior to discharge. If blood cultures negative after review today, will discharge. Hospital Course: Differential diagnosis on admission: Inflammatory nodules versus septic pulmonary emboli versus pneumonia Blood cultures 2 neg x 2 days. Plan initially was to continue IV abx until bld cx neg x 3 days (06/27/16), however, patient has refused IV antibiotics as of overnight 06/26 Broad-spectrum antibiotics to cover for possible pneumonia as well as possible endocarditis Vancomycin 1 g IV every 12 hours (06/24 first dose -- ) Azithromycin 500 mg by mouth every 24 hours (06/24-06/26) Rocephin 1 g IV every 24 hours (06/24-06/26) 2-D echocardiogram 06/24 showed no vegetations - with mild to moderate regurgitation of tricuspid valve. Consult infectious disease, we appreciate their recommendations - recommended continuing clindamycin by mouth for at least 3 weeks with serial CXRs as outpatient. Satting well on room air. Breathing tx can be discontinued Monitored on telemetry, only events were asymptomatic bradycardia (2) Chest pain Status: Acute Plan: Resolving. Likely secondary to PNA and septic emboli. Monitor clinically , continue treatment with Percocet PO as needed as outpatient Hospital course: Concern initially for infectious endocarditis, however, echo showing no evidence - Patient has 3 minor criteria, no major criteria (veg or + blood culture) - Recent IV drug use - Febrile up to 100.4 - Possible pulmonary emboli Blood cultures 2 no growth Echocardiogram no vegetations Initial cardiac troponin was within normal limits Possible source of infection of the left wrist, US heterogeneous mass measuring 2.6 cm, resolving spontaneously, reduced in size and inflammation over hospital stay. Inpatient pain control as below: Pain control with Percocet 10-325, 1 and 2 tablets for pain 1-5 and 6-10 respectively Morphine 2 mg q 3 hr breakthrough Scheduled DuoNeb's every 6 hours discontinued (3) Heart murmur Status: Acute Plan: Secondary to tricuspid regurgitation per echo, can be followed as outpatient given asymptomatic with no signs of vegetations on echo (4) IV drug abuse Status: Acute Plan: CIWA protocol in initial place for agitation but discontinued next day. Possibility of withdrawal during hospitalization. We restarted methadone at 30 mg daily on day 2 of hospital stay. She is to continue with methadone clinic as outpatient Hospital course: Methadone as above 0.1 mg every 3 hours when necessary withdrawal/tachycardia (hold parameters) Baclofen 5 mg for muscle cramps PRN q 6 hr - not required Lomotil q 6 hr prn diarrhea -not used (5) Anemia Status: Acute Plan: Stable approx 10.5, likely secondary to malnutrition. Monitor as outpatient, refusing labs 06/27 (6) Hypokalemia Status: Resolved Plan: Resolved with oral potassium supplementation Follow daily BMPs wdw Dr. Hensley (7) Fluids/Electrolytes/Nutrition/Prophylaxis Status: Acute Plan: Fluids: By mouth hydration Electrolytes: monitor and replete as needed Nutrition: Regular diet DVT Prophylaxis: Lovenox 40mg subQ q24hr refused x 2 days GI Prophylaxis: Not indicated (Mally Foss MD R1) Problem Qualifiers (1) Chest pain: Qualified Code: R07.1 - Chest pain on breathing Mally Foss MD R1 Jun 27, 2016 07:54 Harjinder Hensley MD Jun 27, 2016 13:14
[2016-06-27] MEDS ORDERED: OXYC1TAB36 PO (07:57)
[2016-06-27] MEDS ORDERED: CLINDAMYCIN 150 MG CAP PO SCH ×3 (08:00→12:00)
[2016-06-27] MEDS ORDERED: SENN1TAB2 PO (08:09)
[2016-06-27] MEDS ORDERED: DOCUSATE SODIUM 50 MG/SENNA 8.6 MG TAB PO PRN (08:15)
[2016-06-27] MEDS: METHADONE HCL 10 MG TAB PO SCH (08:18)
[2016-06-27] MEDS: SODIUM CHLORIDE 0.9% FLUSH 10 ML FLUSH IV FLUSH SCH (08:19)
[2016-06-27] MEDS: SODIUM CHLOR 0.9% 1000 ML INJ 1,000 ML IV SCH (08:19)
[2016-06-27] MEDS ORDERED: cefTRIAXone INJ 1,000 MG in SODIUM CHLORIDE 0.9% INJ 100 ML IV ONE (08:30)
[2016-06-27] MEDS ORDERED: PHARMACY ORDERED LAB ONE (09:45)
[2016-06-27 09:48] VITALS: O2SAT 97
--- NOTE | 2016-06-27 11:19 | HHI.DS ---
Discharge Summary Admission Date Jun 24, 2016 at 19:19 Discharge Date: Jun 27, 2016 Admitting Diagnosis endocarditis (1) Pulmonary infiltrates Diagnosis: Principal Plan: Likely septic emboli. Discontinue IV antibiotics due to patient refusal, transition to Clindamycin PO this morning prior to discharge. If blood cultures negative after review today, will discharge. Hospital Course: Differential diagnosis on admission: Inflammatory nodules versus septic pulmonary emboli versus pneumonia Blood cultures 2 neg x 2 days. Plan initially was to continue IV abx until bld cx neg x 3 days (06/27/16), however, patient has refused IV antibiotics as of overnight 06/26 Broad-spectrum antibiotics to cover for possible pneumonia as well as possible endocarditis Vancomycin 1 g IV every 12 hours (06/24 first dose -- ) Azithromycin 500 mg by mouth every 24 hours (06/24-06/26) Rocephin 1 g IV every 24 hours (06/24-06/26) 2-D echocardiogram 06/24 showed no vegetations - with mild to moderate regurgitation of tricuspid valve. Consult infectious disease, we appreciate their recommendations - recommended continuing clindamycin by mouth for at least 3 weeks with serial CXRs as outpatient. Satting well on room air. Breathing tx can be discontinued Monitored on telemetry, only events were asymptomatic bradycardia (2) Chest pain Diagnosis: Principal Plan: Resolving. Likely secondary to PNA and septic emboli. Monitor clinically , continue treatment with Percocet PO as needed as outpatient Hospital course: Concern initially for infectious endocarditis, however, echo showing no evidence - Patient has 3 minor criteria, no major criteria (veg or + blood culture) - Recent IV drug use - Febrile up to 100.4 - Possible pulmonary emboli Blood cultures 2 no growth Echocardiogram no vegetations Initial cardiac troponin was within normal limits Possible source of infection of the left wrist, US heterogeneous mass measuring 2.6 cm, resolving spontaneously, reduced in size and inflammation over hospital stay. Inpatient pain control as below: Pain control with Percocet 10-325, 1 and 2 tablets for pain 1-5 and 6-10 respectively Morphine 2 mg q 3 hr breakthrough Scheduled DuoNeb's every 6 hours discontinued (3) IV drug abuse Diagnosis: Principal Plan: CIWA protocol in initial place for agitation but discontinued next day. Possibility of withdrawal during hospitalization. We restarted methadone at 30 mg daily on day 2 of hospital stay. She is to continue with methadone clinic as outpatient Hospital course: Methadone as above 0.1 mg every 3 hours when necessary withdrawal/tachycardia (hold parameters) Baclofen 5 mg for muscle cramps PRN q 6 hr - not required Lomotil q 6 hr prn diarrhea -not used (4) Heart murmur Diagnosis: Secondary Plan: Secondary to tricuspid regurgitation per echo, can be followed as outpatient given asymptomatic with no signs of vegetations on echo (5) Anemia Diagnosis: Secondary Plan: Stable approx 10.5, likely secondary to malnutrition. Monitor as outpatient, refusing labs 06/27 (6) Hypokalemia Diagnosis: Secondary Plan: Resolved with oral potassium supplementation Follow daily BMPs wdw Dr. Hensley [facility] Infectious Disease Brief History 30 y/o Female with PMHx of IVDU, presenting with right sided chest pain. HPI: She reports that 5 days ago she had nausea and fatigue, productive of green mucus. Denies hemoptysis. +Nasal congestive over the same time periods well as "flu symptoms" which include general malaise, cough, rhinorrhea. Last night, she was laying down, sleeping and was awoken by chest pain. She thought it was a cramp, so she started stretching. This did not help and the pain continued to get worse. Pain worse with deep inspiration and cough. Described as a stabbing pain. The pain on admission was a 10, currently a 6 out of 10. An hour after pain medication her CP improved (morphine 4 mg IV). Pain radiates into her back. No pain in her jaw or into one arm. No diaphoresis. No nausea or vomiting. +SOB 2/2 inability to take a deep breath. Denies reflux symptoms. CBC/BMP: 06/26/16 0916 06/26/16 0916 Significant Findings Laboratory Tests Test 06/24/16 06/25/16 06/25/16 06/26/16 17:20 02:00 04:35 09:16 Hemoglobin 10.4 GM/DL 9.6 GM/DL 10.7 GM/DL (11.6-15.3) (11.6-15.3) (11.6-15.3) Hematocrit 31.8 % 29.1 % 31.9 % (35.0-46.0) (35.0-46.0) (35.0-46.0) Mean Corpuscular Volume 74.6 FL 73.9 FL 74.4 FL (80.0-100.0) (80.0-100.0) (80.0-100.0) Mean Corpuscular Hemoglobin 24.5 PG 24.5 PG 24.8 PG (27.0-34.0) (27.0-34.0) (27.0-34.0) Platelet Count 144 TH/MM3 129 TH/MM3 143 TH/MM3 (150-450) (150-450) (150-450) Monocytes (%) (Auto) 9.1 % (0.0-8.0) 11.0 % 9.8 % (0.0-8.0) (0.0-8.0) Band Neutrophils % 21 % (0-6) Platelet Estimate LOW (NORMAL) LOW (NORMAL) LOW (NORMAL) Activated Partial 39.9 SEC Thromboplast Time (24.3-30.1) Sodium Level 134 MEQ/L (136-145) Potassium Level 3.3 MEQ/L (3.5-5.1) Chloride Level 96 MEQ/L (98-107) Blood Urea Nitrogen 5 MG/DL (7-18) 4 MG/DL (7-18) 4 MG/DL (7-18) Troponin I LESS THAN 0.02 NG/ML (0.02-0.05) Total Protein 8.4 GM/DL (6.4-8.2) Albumin 3.1 GM/DL 2.6 GM/DL 2.8 GM/DL (3.4-5.0) (3.4-5.0) (3.4-5.0) Urine Opiates Screen POS (NEG) Red Blood Count 3.93 MIL/MM3 (4.00-5.30) Calcium Level 8.4 MG/DL (8.5-10.1) Vancomycin Level Trough 4.9 MCG/ML (5.0-10.0) PE at Discharge GENERAL: Healthy-appearing young woman, lying in bed in no obvious distress. SKIN: Multiple tattoos - track smyth and bruises on forearms. No splinter hemorrhages noted. Left wrist on the flexor aspect with a 0.5cm x 0.5 cm raised lesion, smaller than previous exams. No longer erythematous. HEAD: Atraumatic. Normocephalic. EYES: Pupils equal round and reactive. Extraocular motions intact. No scleral icterus. NECK: Trachea midline. No JVD or lymphadenopathy. Supple, nontender, no meningeal signs. CARDIOVASCULAR: Regular rate and rhythm. 2/6 ejection murmur systolic. RESPIRATORY: Lung jordan were clear to auscultation without wheezes or crackles. GASTROINTESTINAL: Abdomen soft, non-tender, nondistended. MUSCULOSKELETAL: Extremities without clubbing, cyanosis, or edema. No splinter hemorrhages noted under nails. NEUROLOGICAL: Awake and alert. Cranial nerves II through XII intact. Motor and sensory grossly within normal limits. Five out of 5 muscle strength in all muscle groups. Normal speech. Hospital Course Patient is a 30 year old female with history of IVDU admitted with acute onset chest pain and SOB. Differential diagnosis included PNA, PTX, ACS, endocarditis at admission. UDS + opiates. She met sepsis criteria and had a murmur and was admitted for further work-up of endocarditis after labs were notable only for mild hypokalemia. EKG showing only sinus tachycardia. Imaging in the ED included CXR and CTA showing scattered nodular densities concerning for septic pulmonary emboli in the setting of IVDU. She also had a nodule on the left anterior wrist which resolved over hospital stay likely a septic embolus as well. She was placed on IV vancomycin and Infectious Disease consult was placed. Blood cultures showed no growth at discharge on June 27 and are showing no growth at final read. She was discharged on clindamycin to be continued for at least three weeks per ID, and she was seen by [employer] Operator prior to discharge to set up PCP appointment for serial CXRs to assess for resolution of septic emboli. She was counseled to discontinue IVDU. Patient was discharged in stable condition. Pt Condition on Discharge: Stable Discharge Disposition: Discharge Home Discharge Instructions DIET: Follow Instructions for: As Tolerated, No Restrictions Activities you can perform: Regular-No Restrictions Follow up Referrals: Appointment for Follow Up - 1 Week New Orders: X-RAY CHEST PA & LAT - 1 Week New Medications: Clindamycin (Clindamycin) 300 Mg Cap 300 MG PO TID Take one tab every 6 hours until antibiotics are gone (three weeks ) Infection #63 Ref 0 CAP Sennosides-Docusate Sodium (Senna-Docusate Sodium) 8.6-50 Mg Tab 1 TAB PO DAILY Constipation #30 Ref 0 TAB Oxycodone-Acetaminophen (Oxycodone-Acetaminophen) 10-325 mg Tab 1-2 TAB PO Q6H PRN PAIN SCALE 6 TO 10 #30 TAB Mally Foss MD R1 Jun 27, 2016 11:19
== END 2016-06-27 12:33 | disposition home or self-care (01) | DRG 194 ==
LOC: NEPA 12:28 → NEDA 19:19 → NEPHCDU 22:12
PROVIDERS: ADMIT Family Medicine; ATTEND Family Medicine
DX: J18.9 Pneumonia, unspecified organism (principal); I76 Septic arterial embolism; E46 Unspecified protein-calorie malnutrition; Z68.1 Body mass index [BMI] 19.9 or less, adult; I07.1 Rheumatic tricuspid insufficiency; F19.10 Other psychoactive substance abuse, uncomplicated; D64.9 Anemia, unspecified; E87.6 Hypokalemia; Z87.01 Personal history of pneumonia (recurrent); F17.210 Nicotine dependence, cigarettes, uncomplicated
CPT/HCPCS: 71010; 71250; 71275; 76882; 80053; 80202; 80307; 81001; 82550; 82948; 83605; 83735; 84484; 85007; 85025; 85027; 85610; 85730; 87040; 87449; 87804; 93005; 93306; 94640; 94664; 96374; J0696; J1650; J2060; J2270; J3370; J7030; J7050; Q9967

== ENCOUNTER 2017-08-06 12:41 | Emergency (ER) | payer MEDICAID ==
[~2017-08-06] VITALS: Ht 172.7 cm; Wt 60.0 kg
[~2017-08-06 12:41] MED LIST changes: +CLIN300C5 PO; -DOXY100C PO; +OXYC1TAB36 PO; +SENN1TAB2 PO
[2017-08-06 13:00] VITALS: BP 124/69; PULSE 75; RESP 16; TEMP 98; O2SAT 100
[2017-08-06] MEDS ORDERED: DILA8TAB4 PO (13:39)
[2017-08-06] MEDS ORDERED: PENI500T PO (13:39)
[2017-08-06] MEDS ORDERED: DILA2TAB4 PO (13:39)
[2017-08-06 14:13] LABS: AUTOMATED NEUTROPHIL # 4.2 TH/MM3 (1.8-7.7); BASOPHIL % 0.6 % (0.0-2.0); EOSINOPHIL # 0.1 TH/MM3 (0-0.4); EOSINOPHIL % 1.8 % (0.0-4.0); HEMATOCRIT 33.6 % (35.0-46.0); HEMOGLOBIN 10.9 GM/DL (11.6-15.3); LYMPH % 28.5 % (9.0-44.0); MEAN CELL VOLUME 77.8 FL (80.0-100.0); MEAN CORPUSCULAR HEMOGLOBIN 25.3 PG (27.0-34.0); MEAN CORPUSCULAR HGB CONC 32.5 % (32.0-36.0); MEAN PLATELET VOLUME 7.2 FL (7.0-11.0); MONO % 9.1 % (0.0-8.0); MONOCYTE # 0.6 TH/MM3 (0-0.9); PLATELET COUNT 245 TH/MM3 (150-450); RED BLOOD COUNT 4.32 MIL/MM3 (4.00-5.30); RED CELL DISTRIBUTION WIDTH 14.9 % (11.6-17.2); WHITE BLOOD COUNT 7.1 TH/MM3 (4.0-11.0)
--- NOTE | 2017-08-06 14:16 | PD ---
HPI Chief Complaint: Complaint Time Seen by Provider: 13:38 Travel History International Travel<30 days: No Contact w/Intl Traveler<30days: No Traveled to known affect area: No History of Present Illness HPI 31-year-old female presents emergency department with to home positive tests, and recent lower abdominal cramping, and dark urine for the past 2 days. Patient denies fever, chills, nausea, vomiting, or diarrhea. Patient has no vaginal bleeding or discharge. Patient states her last menstrual period was in May, but she tends to skip months in between according to the patient. Pain is cramping in nature and 6 out of 10. She is allergic to tramadol. PFSH Past Medical History Cardiovascular Problems: No Diminished Hearing: No Genitourinary: No Medical other: Yes (disk herniation) Musculoskeletal: No Neurologic: No Reproductive: No Respiratory: No Tetanus Vaccination: > 5 Years Influenza Vaccination: No ?: Not LMP: ? 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) Allergies-Medications (Allergen,Severity, Reaction): Coded Allergies: tramadol (Verified Allergy, Severe, TONGUE SWELLED UP, 08/06/17) Reported Meds & Prescriptions Reported Meds & Active Scripts Active Reported Penicillin V Potassium 500 Mg Tab 500 Mg PO Q8H Dilaudid (Hydromorphone HCl) 8 Mg Tab 8 Mg PO BID PRN Dilaudid (Hydromorphone HCl) 2 Mg Tab 2 Mg PO Q8H PRN Review of Systems Except as stated in HPI: all other systems reviewed are Neg General / Constitutional: No: Fever Eyes: No: Visual changes HENT: No: Headaches Cardiovascular: No: Chest Pain or Discomfort Respiratory: No: Shortness of Breath Gastrointestinal: No: Abdominal Pain Genitourinary: Positive: Pelvic Pain (See history of present illness), Other, No: Urgency, Frequency, Dysuria, Discharge, Vaginal Bleeding Musculoskeletal: No: Pain Skin: No Rash Neurologic: No: Weakness Psychiatric: No: Depression Endocrine: No: Polydipsia Hematologic/Lymphatic: No: Easy Bruising Physical Exam Narrative GENERAL: Patient appears in no obvious distress. SKIN: Warm and dry. Normal color. Normal turgor. HEAD: Atraumatic. Normocephalic. EYES: Pupils equal and round. No scleral icterus. No injection or drainage. ENT: No nasal bleeding or discharge. Mucous membranes pink and moist. NECK: Trachea midline. No JVD. CARDIOVASCULAR: Regular rate and rhythm. RESPIRATORY: No accessory muscle use. Clear to auscultation. Breath sounds equal bilaterally. GASTROINTESTINAL: Abdomen soft, no significant tenderness, nondistended. Hepatic and splenic margins not palpable. No CVA tenderness. MUSCULOSKELETAL: Extremities without clubbing, cyanosis, or edema. No obvious deformities. NEUROLOGICAL: Awake and alert. No obvious cranial nerve deficits. Motor grossly within normal limits. Five out of 5 muscle strength in the arms and legs. Normal speech. PSYCHIATRIC: Appropriate mood and affect; insight and judgment normal. Data Data Last Documented VS Vital Signs Date Time Temp Pulse Resp B/P (MAP) Pulse Ox O2 Delivery O2 Flow Rate FiO2 08/06/17 16:50 08/06/17 15:00 97.8 76 16 99 Orders Orders Beta Hcg (Quant/Titer) (08/06/17 13:39) Complete Blood Count With Diff (08/06/17 13:39) Comprehensive Metabolic Panel (08/06/17 13:39) Urinalysis - C+S If Indicated (08/06/17 13:39) Ed Urine Pregnancytest Poc (08/06/17 13:39) Us Pelvis (Ques Pr/Ect)W Trans (08/06/17 ) Labs Laboratory Tests Test 08/06/17 13:10 08/06/17 13:50 White Blood Count 7.1 TH/MM3 Red Blood Count 4.32 MIL/MM3 Hemoglobin 10.9 GM/DL Hematocrit 33.6 % Mean Corpuscular Volume 77.8 FL Mean Corpuscular Hemoglobin 25.3 PG Mean Corpuscular Hemoglobin Concent 32.5 % Red Cell Distribution Width 14.9 % Platelet Count 245 TH/MM3 Mean Platelet Volume 7.2 FL Neutrophils (%) (Auto) 60.0 % Lymphocytes (%) (Auto) 28.5 % Monocytes (%) (Auto) 9.1 % Eosinophils (%) (Auto) 1.8 % Basophils (%) (Auto) 0.6 % Neutrophils # (Auto) 4.2 TH/MM3 Lymphocytes # (Auto) 2.0 TH/MM3 Monocytes # (Auto) 0.6 TH/MM3 Eosinophils # (Auto) 0.1 TH/MM3 Basophils # (Auto) 0.0 TH/MM3 CBC Comment DIFF FINAL Differential Comment Blood Urea Nitrogen 6 MG/DL Creatinine 0.67 MG/DL Random Glucose 85 MG/DL Total Protein 8.1 GM/DL Albumin 3.1 GM/DL Calcium Level 8.5 MG/DL Alkaline Phosphatase 132 U/L Aspartate Amino Transf (AST/SGOT) 14 U/L Alanine Aminotransferase (ALT/SGPT) 16 U/L Total Bilirubin 0.2 MG/DL Sodium Level 137 MEQ/L Potassium Level 3.8 MEQ/L Chloride Level 103 MEQ/L Carbon Dioxide Level 25.1 MEQ/L Anion Gap 9 MEQ/L Estimat Glomerular Filtration Rate 103 ML/MIN Human Chorionic Gonadotropin, Quant 206 MIU/ML Urine Color YELLOW Urine Turbidity CLEAR Urine pH 5.5 Urine Specific [place] 1.028 Urine Protein TRACE mg/dL Urine Glucose (UA) NEG mg/dL Urine Ketones NEG mg/dL Urine Occult Blood LARGE Urine Nitrite NEG Urine Bilirubin NEG Urine Urobilinogen LESS THAN 2.0 MG/DL Urine Leukocyte Esterase TRACE Urine RBC 7 /hpf Urine WBC 3 /hpf Urine Squamous Epithelial Cells 3 /hpf Urine Bacteria OCC /hpf Urine Mucus FEW /lpf Microscopic Urinalysis Comment CULT NOT INDICATED MDM Medical Decision Making Medical Screen Exam Complete: Yes Emergency Medical Condition: Yes Differential Diagnosis Early . Ectopic . Urinary tract infection. Narrative Course Patient is medically stable at time of exam. Urine is positive. Urinalysis is sent to the lab Serum hCG is ordered. Pelvic ultrasound is ordered. CBC shows microcytic anemia with a hemoglobin of 10.9, hematocrit of 33.6, MCV of 77.8, MCH of 25.3 Chemistries are unremarkable, except for alk phos of 132, albumin is 3.1, and hCG is 206 Urinalysis is unremarkable for obvious infection. Ultrasound showed no obvious intrauterine , but it is too early to determine. Patient will follow up with OB or primary care physician. Diagnosis Primary Impression: Pelvic pain Additional Impression: Early stage of Referrals: Manager Forensic Patient Instructions: General Instructions Additional Instructions: CBC shows microcytic anemia with a hemoglobin of 10.9, hematocrit of 33.6, MCV of 77.8, MCH of 25.3 Chemistries are unremarkable, except for alk phos of 132, albumin is 3.1, and hCG is 206 Urinalysis is unremarkable for obvious infection. Ultrasound showed no obvious intrauterine , but it is too early to determine. Patient will follow up with OB or primary care physician. Med/Other Pt SpecificInfo: No Meds Exist/No RX given Disposition: 01 DISCHARGE HOME Condition: Stable Chencho Rivera August 06, 2017 14:16
[2017-08-06 14:20] LABS: BACTERIA, URINE OCC /hpf; BILIRUBIN, URINE NEG (NEG); BLOOD, URINE LARGE (NEG); GLUCOSE,URINE NEG (NEG); KETONE, URINE NEG (NEG); MUCUS URINE FEW /lpf (OCC); NITRITE,URINE NEG (NEG); PH, URINE 5.5 (5.0-8.5); SQUAMOUS EPITHELIAL CELL URINE 3 /hpf (0-5); URINE COLOR YELLOW (YELLW/STRAW); URINE LEUKOCYTE ESTERASE TRACE (NEG)
[2017-08-06 14:37] LABS: ALBUMIN 3.1 GM/DL (3.4-5.0); ALT (GPT) 16 U/L (10-53); AST (GOT) 14 U/L (15-37); BICARBONATE 25.1 MEQ/L (21.0-32.0); BLOOD UREA NITROGEN 6 MG/DL (7-18); CALCIUM 8.5 MG/DL (8.5-10.1); CHLORIDE 103 MEQ/L (98-107); CREATININE 0.67 MG/DL (0.50-1.00); GLOMERULAR FILTRATION RATE 103 ML/MIN (>89); GLUCOSE,RANDOM 85 MG/DL (74-106); SODIUM (NA) 137 MEQ/L (136-145)
[2017-08-06 14:40] LABS: ALKALINE PHOSPHATASE 132 U/L (45-117); TOTAL BILIRUBIN ADULT 0.2 MG/DL (0.2-1.0); TOTAL PROTEIN 8.1 GM/DL (6.4-8.2)
[2017-08-06 15:00] VITALS: BP 120/76; PULSE 76; RESP 16; TEMP 97.8; O2SAT 99
--- NOTE | 2017-08-06 15:17 | PD ---
Physical Exam Date Seen by Provider: August 06, 2017 Narrative This is a patient with and pelvic pain who is being seen with the PA. Data Data Last Documented VS Vital Signs Date Time Temp Pulse Resp B/P (MAP) Pulse Ox O2 Delivery O2 Flow Rate FiO2 08/06/17 13:40 76 16 08/06/17 13:00 98.0 124/69 (87) 100 Orders Orders Beta Hcg (Quant/Titer) (08/06/17 13:39) Complete Blood Count With Diff (08/06/17 13:39) Comprehensive Metabolic Panel (08/06/17 13:39) Us Pelvis (Ques Preg/Ectopic) (08/06/17 ) Urinalysis - C+S If Indicated (08/06/17 13:39) Ed Urine Pregnancytest Poc (08/06/17 13:39) Labs Laboratory Tests Test 08/06/17 13:10 08/06/17 13:50 White Blood Count 7.1 TH/MM3 Red Blood Count 4.32 MIL/MM3 Hemoglobin 10.9 GM/DL Hematocrit 33.6 % Mean Corpuscular Volume 77.8 FL Mean Corpuscular Hemoglobin 25.3 PG Mean Corpuscular Hemoglobin Concent 32.5 % Red Cell Distribution Width 14.9 % Platelet Count 245 TH/MM3 Mean Platelet Volume 7.2 FL Neutrophils (%) (Auto) 60.0 % Lymphocytes (%) (Auto) 28.5 % Monocytes (%) (Auto) 9.1 % Eosinophils (%) (Auto) 1.8 % Basophils (%) (Auto) 0.6 % Neutrophils # (Auto) 4.2 TH/MM3 Lymphocytes # (Auto) 2.0 TH/MM3 Monocytes # (Auto) 0.6 TH/MM3 Eosinophils # (Auto) 0.1 TH/MM3 Basophils # (Auto) 0.0 TH/MM3 CBC Comment DIFF FINAL Differential Comment Blood Urea Nitrogen 6 MG/DL Creatinine 0.67 MG/DL Random Glucose 85 MG/DL Total Protein 8.1 GM/DL Albumin 3.1 GM/DL Calcium Level 8.5 MG/DL Alkaline Phosphatase 132 U/L Aspartate Amino Transf (AST/SGOT) 14 U/L Alanine Aminotransferase (ALT/SGPT) 16 U/L Total Bilirubin 0.2 MG/DL Sodium Level 137 MEQ/L Potassium Level 3.8 MEQ/L Chloride Level 103 MEQ/L Carbon Dioxide Level 25.1 MEQ/L Anion Gap 9 MEQ/L Estimat Glomerular Filtration Rate 103 ML/MIN Human Chorionic Gonadotropin, Quant 206 MIU/ML Urine Color YELLOW Urine Turbidity CLEAR Urine pH 5.5 Urine Specific [place] 1.028 Urine Protein TRACE mg/dL Urine Glucose (UA) NEG mg/dL Urine Ketones NEG mg/dL Urine Occult Blood LARGE Urine Nitrite NEG Urine Bilirubin NEG Urine Urobilinogen LESS THAN 2.0 MG/DL Urine Leukocyte Esterase TRACE Urine RBC 7 /hpf Urine WBC 3 /hpf Urine Squamous Epithelial Cells 3 /hpf Urine Bacteria OCC /hpf Urine Mucus FEW /lpf Microscopic Urinalysis Comment CULT NOT INDICATED MDM Supervised Visit with RYANN: Yes Narrative Course I, Dr. Malave, have reviewed the advance practice practitioner's documentation and am in agreement, met with the patient face to face, made the diagnosis, and the medical decision making was done by me. *My assessment and Findings: Patient is resting comfortably in no distress. She has a benign abdominal exam. Please see Jorge L Rivera PA-C's note for results of laboratory and radiographic evaluation, ED course, final diagnosis and disposition Condition: Stable Gayathri Malave MD August 06, 2017 15:17
--- NOTE | 2017-08-06 16:57 | RADRPT ---
EXAM DATE/TIME: 08/06/2017 15:49 [facility] COMPARISON: No previous studies available for comparison. INDICATIONS : Cramping. LAB(S): Beta-hC MEDICAL HISTORY : . SURGICAL HISTORY : None. ENCOUNTER: Initial ACUITY: 2 days PAIN SCORE: 3/10 LOCATION: Bilateral pelvis MEASUREMENTS: UTERUS: 7.9 x 6.1 x 4.6 cm ENDOMETRIAL STRIPE: >20 mm RIGHT OVARY: 3.9 x 2.5 x 2.1 cm LEFT OVARY: 3.5 x 1.6 x 1.6 cm FREE FLUID: Yes Trace amount of free fluid. CROWN RUMP LENGTH: Not visualized. = WKS DAYS FHR: Not visualized. BPM FINDINGS: UTERUS: Endometrium is prominent. There is no evidence of intrauterine gestational sac. RIGHT OVARY: Ovary contains no mass or significant cystic lesion. LEFT OVARY: Ovary contains no mass or significant cystic lesion. MISCELLANEOUS: Minimal free fluid CONCLUSION: No intrauterine gestation identified. Differential considerations include early IUP, miscarriage and ectopic . Elian Lagos MD on August 06, 2017 at 16:53 Board Certified Radiologist. This report was verified electronically.
== END 2017-08-06 16:50 | disposition left against medical advice (07) ==
LOC: NEPD 12:41
DX: O26.891 Other specified pregnancy related conditions, first trimester (principal); R10.2 Pelvic and perineal pain; O99.331 Smoking (tobacco) complicating pregnancy, first trimester; F17.200 Nicotine dependence, unspecified, uncomplicated; Z3A.00 Weeks of gestation of pregnancy not specified
CPT/HCPCS: 76700; 76817; 80053; 81001; 84702; 84703; 85025; 99284

== ENCOUNTER 2017-09-01 18:05 | Emergency (ER) | payer MEDICAID ==
[~2017-09-01] VITALS: Ht 172.7 cm; Wt 67.0 kg
[~2017-09-01 18:05] MED LIST changes: -CLIN300C5 PO; +DILA2TAB4 PO; +DILA8TAB4 PO; -OXYC1TAB36 PO; +PENI500T PO; -SENN1TAB2 PO
[2017-09-01 18:08] VITALS: BP 112/63; PULSE 75; RESP 18; TEMP 97.5; O2SAT 100
--- NOTE | 2017-09-01 18:47 | PD ---
HPI Chief Complaint: Related Problem Time Seen by Provider: 18:15 Travel History International Travel<30 days: No Contact w/Intl Traveler<30days: No Traveled to known affect area: No History of Present Illness HPI 31-year-old female complains of pelvic pain and vaginal discharge. Patient is 3 para 1. Patient states that she is about 7 week by date. Patient was seen in the emergency room on August 06, 2017 for abdominal pain. Beta -hCG titer was 206. Pelvic ultrasound showed no evidence of IUP. Patient's blood type A+. Patient was advised to follow with local OB physician. Patient has appointment with physician in [place]. Patient states that she started having increased low abdominal pain pelvic pain for the past 3 days. Patient states that the pain is worse this evening. Patient noticed a small amount of brown vaginal discharge today. Patient complained of severe nausea. Patient denies any headache. Patient denies any chest pain or shortness of breath. Patient denies any dysuria or frequency. Patient denies any fever chills. Patient denies any back pain. Patient is going to the methadone clinic. 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) Allergies-Medications (Allergen,Severity, Reaction): Coded Allergies: tramadol (Verified Allergy, Severe, TONGUE SWELLED UP, 09/01/17) Reported Meds & Prescriptions Reported Meds & Active Scripts Active No Active Prescriptions or Reported Medications Review of Systems General / Constitutional: No: Fever Eyes: No: Visual changes HENT: No: Headaches Cardiovascular: No: Chest Pain or Discomfort Respiratory: No: Shortness of Breath Gastrointestinal: Positive: Abdominal Pain Genitourinary: Positive: Pelvic Pain, Discharge, No: Dysuria Musculoskeletal: No: Pain Skin: No Rash Neurologic: No: Weakness Psychiatric: No: Depression Endocrine: No: Polydipsia Hematologic/Lymphatic: No: Easy Bruising Physical Exam Narrative GENERAL: Well-nourished, well-developed patient. SKIN: Focused skin assessment warm/dry. HEAD: Normocephalic. EYES: No scleral icterus. No injection or drainage. NECK: Supple, trachea midline. No JVD or lymphadenopathy. CARDIOVASCULAR: Regular rate and rhythm without murmurs, gallops, or rubs. RESPIRATORY: Breath sounds equal bilaterally. No accessory muscle use. GASTROINTESTINAL: Abdomen soft, non-tender, nondistended. MUSCULOSKELETAL: No cyanosis, or edema. BACK: Nontender without obvious deformity. No CVA tenderness. PACKING LINE OPERATOR exam: Patient has small amount of brownish discharge in the vaginal vault. No cervical motion tenderness. The cervix is long thick and closed. Uterus is mildly enlarged with mild tenderness on palpation. No adnexal mass or tenderness. Data Data Last Documented VS Vital Signs Date Time Temp Pulse Resp B/P (MAP) Pulse Ox O2 Delivery O2 Flow Rate FiO2 09/01/17 19:23 73 16 113/53 (73) 100 Room Air 09/01/17 18:08 97.5 Orders Orders Beta Hcg (Quant/Titer) (09/01/17 18:28) Us Pelvis (Ques Pr/Ect)W Trans (09/01/17 ) Urinalysis - C+S If Indicated (09/01/17 18:28) Iv Access Insert/Monitor (09/01/17 18:28) Ed Discharge Order (09/01/17 20:57) Labs Laboratory Tests Test 09/01/17 18:40 Human Chorionic Gonadotropin, Quant 41337 MIU/ML MDM Medical Decision Making Medical Screen Exam Complete: Yes Emergency Medical Condition: Yes Interpretation(s) 1948 PM. Beta-hCG 02269. Differential Diagnosis Differential diagnosis including threatened AB, incomplete AB, complete AB, ectopic . Narrative Course 31-year-old female with pelvic pain and vaginal discharge. Diagnosis Primary Impression: Miscarriage Patient Instructions: General Instructions Additional Instructions: Tylenol ibuprofen for pain. Follow-up with machine plug shaper. Return if severe pelvic pain, excessive bleeding. Med/Other Pt SpecificInfo: No Change to Meds Scripts No Active Prescriptions or Reported Meds Disposition: 01 DISCHARGE HOME Condition: Stable Carl Ramirez MD Sep 01, 2017 18:47
[2017-09-01 19:23] VITALS: BP 113/53; PULSE 73; RESP 16; O2SAT 100
--- NOTE | 2017-09-01 20:49 | RADRPT ---
EXAM DATE: 09/01/2017 8:39 PM EDT AGE/SEX: 31 years / Female INDICATIONS: Cramping x 3 days and bleeding today. CLINICAL DATA: This is the patient's subsequent encounter. Patient reports that signs and symptoms h ave been present for 3 days and indicates a pain score of 5/10. Unknown LMP. Beta hCG 11,061 MEDICAL/SURGICAL HISTORY: . None. COMPARISON: Pelvic ultrasound 08/06/2017. MEASUREMENTS: Uterus:__8.6 x 4.8 x 4.6 cm Endometrial Stripe:__18 mm Right Ovary:__ 3.9 x 3.2 x 2.1 cm Left Ovary:__ 3.3 x 1.9 x 1.0 cm FINDINGS: Uterus: Retroverted uterus. The myometrium has homogeneous echotexture without mass. A cystic structu re is seen associated with the lower uterine segment endometrial canal. It is somewhat irregular in s hape. It measures 1.7 x 2.5 x 1.0 cm. No yolk sac or pole observed. Right Ovary: A thick walled cyst is seen involving the right ovary. This measures 2 cm in diameter. No hyperemia. No yolk sac or pole. The right ovary is otherwise unremarkable. Left Ovary: Left ovary is unremarkable. Other: Trace amount of free fluid within the right adnexa. CONCLUSION: 1. Findings suggesting blighted ovum. 2. 2 cm thick-walled cyst involving the right ovary likely related to a corpus luteal cyst. 3. Trace amount of free fluid. Electronically signed by: Cody Sandoval MD 09/01/2017 8:47 PM EDT
== END 2017-09-01 21:00 | disposition home or self-care (01) ==
LOC: PHED 18:05
DX: O03.9 Complete or unspecified spontaneous abortion without complication (principal)
CPT/HCPCS: 76700; 76817; 84702; 99285